=== PATIENT | male | born 1930 | race Caucasian/White ===

== ENCOUNTER 2018-10-06 09:55 | Inpatient (IN) ==
[2018-10-06 10:36] LABS: Basophils # 0.1 K/mm3 (0-0.2); Basophils % 0.9 % (0.1-2.0); Eosinophils # 0.4 K/mm3 (0.0-0.4); Eosinophils % 7.4 % (0.1-12.0); Hematocrit 35.8 % (42.0-52.0); Hemoglobin 10.9 g/dL (14.1-18.0); Lymphocytes # 1.2 K/mm3 (0.7-4.5); Lymphocytes % 20.8 % (10-50); Mean Corpuscular HGB Conc 30.4 g/dL (31.8-35.4); Mean Corpuscular Volume 112.1 fl (80-94); Mean Platelet Volume 8.6 fl (7.4-10.4); Monocytes # 0.4 K/mm3 (0.1-1.0); Monocytes % 6.3 % (1.7-9.3); Neutrophils # 3.6 K/mm3 (1.8-7.8); Neutrophils % 64.5 % (37.0-80.0); Platelet Count 124 K/mm3 (142-424); Red Cell Distribution Width 13.7 % (11.5-17.5); White Blood Count 5.6 K/mm3 (4.8-10.8)
[2018-10-06 10:50] LABS: Anion Gap 10.6 mEq/L (5-15); Blood Urea Nitrogen 26 mg/dL (7-18); Calcium 8.8 mg/dL (8.5-10.1); Carbon Dioxide 30 mmol/L (21.0-32.0); Chloride 106 mmol/L (98-107); Glucose 109 mg/dL (74-106); Potassium 4.6 mmoL/L (3.5-5.1); Sodium 142 mmol/L (136-145)
--- NOTE | 2018-10-06 10:54 | Emergency Department Note ---
ED Disposition Clinical Impression: Right lower lobe pneumonia, Elevated hemidiaphragm, Renal insufficiency Disposition: Still a Patient Condition on Discharge: Fair Referrals: Hayden Carr [Primary Care Provider] - - Critical Care Critical Care Time: No Attestation: On 10/06/18, the high probability of a clinically significant, sudden or life threatening deterioration of the following system(s) required my full and direct attention, intervention and personal management. The time I documented below is in addition to time spent performing reported procedures but includes the following listed in this critical care notation. Medical Decision Making - Joshua Inquiry Pt receiving controlled substance: No Joshua was queried for this patient: No Vital Signs: 10/06/18 10:04 10/06/18 10:21 10/06/18 11:03 Temperature 97.7 F Temperature Source Oral Pulse Rate [Left Radial] 100 H 93 H 93 H Respiratory Rate 26 H Blood Pressure [Right Arm] 133/55 L 145/82 H Blood Pressure Mean [Right Arm] 81 103 Blood Pressure Source [Right Arm] Automatic Cuff Automatic Cuff Blood Pressure Position [Right Arm] Sitting Sitting 02 Sat by Pulse Oximetry 79 L 97 99 Oxygen Delivery Method Room Air Nasal Cannula Nasal Cannula Oxygen Flow Rate (LPM) 2 2 - Lab Data Lab Results 10/06/18 10:25: WBC 5.6, RBC 3.20 L, Hgb 10.9 L, Hct 35.8 L, MCV 112.1 H, MCH 34.0 H, MCHC 30.4 L, RDW 13.7, Plt Count 124 L, MPV 8.6, Neut % (Auto) 64.5, Lymph % (Auto) 20.8, [place] % (Auto) 6.3, Eos % (Auto) 7.4, Baso % (Auto) 0.9, Neut # (Auto) 3.6, Lymph # (Auto) 1.2, [place] # (Auto) 0.4, Eos # (Auto) 0.4, Baso # (Auto) 0.1 10/06/18 10:25: Sodium 142, Potassium 4.6, Chloride 106, Carbon Dioxide 30, Anion Gap 10.6, BUN 26 H, Creatinine 1.62 H, Estimated Creat Clear 34, Estimated GFR 40 L, Est GFR ( Amer) 49 L, Glucose 109 H, Calcium 8.8, Troponin I < 0.02 10/06/18 10:25: B-Natriuretic Peptide 79 10/06/18 10:25: Lactate 0.9 10/06/18 10:43: Specimen Source Left radial, O2 % room air, ABG pH 7.29 L, ABG pCO2 56.1 H, ABG pO2 52.0 L, ABG HCO3 26.2 H, ABG Total CO2 28.0 H, ABG O2 Saturation 83 L*, ABG Base Excess -0.4, Mark Test Acceptable Result diagrams: 10/06/18 10:25 10/06/18 10:25 Orders (Tests/Meds): ED MEDICATIONS Generic Name Dose Route Start Last Admin Trade Name Freq PRN Reason Stop Dose Admin Sodium Chloride 3 ml 10/06/18 10:43 Sodium Chloride 3% 15ml [facility] 11/05/18 10:42 ONCE PRN INDUCE SPUTUM COLLECTION Discontinued Medications Generic Name Dose Route Start Last Admin Trade Name Freq PRN Reason Stop Dose Admin Albuterol/Ipratropium 3 ml 10/06/18 10:45 Duoneb 3ml [facility] 10/06/18 10:46 ONCE ONE Ceftriaxone Sodium 1 gm/ 50 mls @ 100 mls/hr 10/06/18 10:46 10/06/18 11:18 Sodium Chloride IV 10/06/18 11:15 100 mls/hr ONCE ONE Administration Protocol ORDERS Category Date Time Status Blood Culture Stat Micro 10/06/18 10:25 Received Sputum Culture & Gram Stain Stat Micro 10/06/18 10:50 Received ECG Request by /Whitney Stat Y 10/06/18 10:12 Ordered - Radiology Data #1 Image(s): Chest Image Reviewed: Yes I reviewed the patient's radiology image, Yes I discussed the image results w/the radiologist Preliminary Findings: Abnormal Poor inspiratory effort, elevated left hemidiaphragm, early developing infiltrates in the right lower lobe. - ECG Data Tracing #1 Normal sinus rhythm 95/min baseline artifact no acute findings. ECG initial impression date: 10/06/18 ECG initial impression time: 11:15 Medical Decision Narrative: The patient did well on 4 L nC. I discussed his CXR with the Radiologist Dr Case with early developing RLL pneumonia. [address] Grimm for admission. Dr. Nickerson agreed to admit her for community-acquired pneumonia start on ceftriaxone and Zithromax. Resp/SOB HPI - General Chief Complaint: Shortness of Breath/Dyspnea Stated Complaint: Low on O2 Time Seen by Provider: 10/06/18 10:10 Mode of Arrival: Ambulatory Limitations: No Limitations Description of Symptoms (Recalled from ER Triage Doc. by RN): to ed per pvt car pt sent from dr carr' office for eval due to sob and low o2 sats pt admits to ed per wheelchair with sob, cough x 1 week denies any fever, chills, nausea, vomiting or chest pain - History of Present Illness 87 years old white male should have Dr. Carr. He presented to the ED with 6 days history of progressive shortness of breath and productive sputum. He denies having fever chills chest pain palpitations hemoptysis hematemesis coffee-ground emesis melanotic stool or bleeding per rectum. He denies nausea vomiting or diarrhea. He believes he has pneumonia. Upon arrival his oxygen saturation was 79% on RA, he has no home oxygen. MD Complaint: shortness of breath, cough Onset (ago): day(s) (6 days.) Severity: moderate Consistency/Duration: constant Relieving factors: oxygen, rest Exacerbating factors: exertion Known history of: recurrent pneumonia Associated symptoms: cough, sputum production Treatment prior to arrival: none - Related Data Home oxygen amount: other (He has no home oxygen.) Previous Rx's Medication Instructions Recorded sndvhley-qmkotwiuv-vprzzinor 3.5 4 drp OTIC TID #10 ml 09/28/18 mg/mL-10,000 unit/mL-1 % ear solution Allergies Allergy/AdvReac Type Severity Reaction Status Date / Time No Known Allergies Allergy Verified 10/06/18 10:16 [facility] History I have reviewed the patient's past medical history: Yes - Social History Alcohol Intake: never - Psychiatric History Expresses thoughts of harming self/others: None Suicide Plan Description: No Plan ROS Obtained: Yes All systems reviewed & no additional complaints Physical Exam - General General appearance: alert, in no apparent distress, other (He breathes comfortably on 4 L of oxygen. ) - Head Head exam: atraumatic, normocephalic, normal inspection - Eye Eye exam: Present: normal appearance, PERRL, EOMI. Absent: scleral icterus, nystagmus - ENT ENT exam: Present: normal exam, normal oropharynx, mucous membranes moist, TM's normal bilaterally, normal external ear exam - Neck Neck exam: Present: normal inspection, full ROM, trachea midline, other (Positive JVD. ). Absent: tenderness, meningismus, lymphadenopathy - Chest Chest inspection: Present: normal inspection, symmetric chest wall rise. Absent: tenderness - Respiratory Respiratory exam: Present: other (Diminished air entry over the lung bases, no wheezing or rhonchi. ). Absent: respiratory distress, wheezes - Cardiovascular Cardiovascular exam: Present: regular rate, normal rhythm, normal heart sounds. Absent: JVD - Abdominal Exam Abdominal exam: Present: soft, normal bowel sounds. Absent: distention, tenderness, guarding, rebound, rigidity - Extremities Exam Extremities exam: Present: normal inspection, full ROM, normal capillary refill, pedal edema, other (Bilateral chronic venous stasis. She states his legs are better. ). Absent: calf tenderness - Back Exam Back exam: Present: normal inspection. Absent: tenderness, CVA tenderness (R), CVA tenderness (L), paraspinal tenderness, vertebral tenderness - Neurological Exam Neurological exam: Present: alert, oriented X3, CN II-XII intact, motor sensory deficit, reflexes normal - Psychiatric Psychiatric exam: Present: normal affect, normal mood - Skin Skin exam: Present: warm, dry, intact, normal color - Lymphatic Lymphatic Findings: no adenopathy
[2018-10-06 11:05] LABS: ABG Base Excess -0.4 mmol/L (-2.4-2.3); ABG HCO3 26.2 mmhg (22.0-26.0); ABG Oxygen Saturation 83 % (90-100); ABG PH 7.29 mmol/L (7.35-7.45)
[2018-10-06 11:09] LABS: ABG PCO2 56.1 mmhg (35.0-45.0); Allen's Test Acceptable; Oxygen room air %
--- NOTE | 2018-10-06 16:01 | History & Physical Report ---
*Admission Date: 10/06/18 *Chief complaint: Shortness of air *History of present illness: 87-year-old white male, patient of Dr. Carr, who went to his office today with a chief complaint of shortness of air and was found to be relatively hypoxemic by pulse oximetry criteria and was transferred over to the emergency department. In the emergency department patient was found to be dyspneic. Required oxygen, and was much more comfortable after 2 L of nasal cannula oxygen delivery. Chest x-ray revealed a right lower lobe pneumonia-although chest x-ray is somewhat compromised by patient significant postural abnormalities and patient was admitted to hospital because of hypoxia, advanced age and other comorbid factors. [facility] History I have reviewed the patient's past medical history: Yes Other Medical History: Reports: Glaucoma Comment: Record deficit from primary care office: Patient endorses significant arthritis and overall fragility. Reports glaucoma, reports peripheral edema with recent Lasix treatment over the past couple of months, as well as significant arthritis, kyphosis and overall functional decline issues. Otherwise enjoys fairly good health and has no significant heart history to his knowledge. Takes naproxen and Lasix at home. 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), Denies change in voice, Denies dental pain, Denies difficulty swallowing - *Cardiovascular Reports shortness of breath, Reports shortness of breath with activity, Reports leg swelling (In past, better now with Lasix), Denies chest pain, Denies chest pain at rest, Denies irregular heart rhythm, Denies lightheadedness, Denies shortness of breath when lying down, Denies rapid, pounding, or irregular heartbeat, Denies shortness of breath causing sudden awakening - *Respiratory Reports change in phlegm color, Reports chest congestion, Reports cough, Reports shortness of breath, Reports shortness of breath with activity, Denies excessive phlegm production, Denies coughing up blood - *Gastrointestinal Denies abdominal pain, Denies belching, Denies bloating, Denies change in bowel habits, Denies coffee ground vomit, Denies constipation, Denies difficulty swallowing - *Genitourinary Denies difficulty urinating - *Musculoskeletal Reports abnormal walking (History of falls), Reports loss of height (History of kyphosis) - Integumentary/Breasts Denies acne, Denies hair loss, Denies bleeding lesions - *Neurologic Reports frequent falls, Denies confusion, Denies seizure-like activity Meds Home Medications Medication Instructions Recorded Confirmed Type Neomycin/Polymyxin B Sulf/Hc 4 drops EAR-BOTH TID PRN 10/06/18 10/06/18 History [Kovhdmql-Cvzdylzkx-MM Otic Susp 10mL] Allergies Allergy/AdvReac Type Severity Reaction Status Date / Time No Known Allergies Allergy Verified 10/06/18 10:16 Exam Vital signs and Labs for Last 24 Hours: Temp Pulse Resp BP Pulse Ox 98 F 110 H 24 133/64 100 10/06/18 13:35 10/06/18 14:17 10/06/18 14:17 10/06/18 14:17 10/06/18 14:17 Laboratory Results - last 24 hr 10/06/18 10:25: WBC 5.6, RBC 3.20 L, Hgb 10.9 L, Hct 35.8 L, MCV 112.1 H, MCH 34.0 H, MCHC 30.4 L, RDW 13.7, Plt Count 124 L, MPV 8.6, Neut % (Auto) 64.5, Lymph % (Auto) 20.8, [place] % (Auto) 6.3, Eos % (Auto) 7.4, Baso % (Auto) 0.9, Neut # (Auto) 3.6, Lymph # (Auto) 1.2, [place] # (Auto) 0.4, Eos # (Auto) 0.4, Baso # (Auto) 0.1 10/06/18 10:25: Sodium 142, Potassium 4.6, Chloride 106, Carbon Dioxide 30, Anion Gap 10.6, BUN 26 H, Creatinine 1.62 H, Estimated Creat Clear 34, Estimated GFR 40 L, Est GFR ( Amer) 49 L, Glucose 109 H, Calcium 8.8, Troponin I < 0.02 10/06/18 10:25: B-Natriuretic Peptide 79 10/06/18 10:25: Lactate 0.9 10/06/18 10:43: Specimen Source Left radial, O2 % room air, ABG pH 7.29 L, ABG pCO2 56.1 H, ABG pO2 52.0 L, ABG HCO3 26.2 H, ABG Total CO2 28.0 H, ABG O2 Saturation 83 L*, ABG Base Excess -0.4, Mark Test Acceptable I & O for Last 24 hours: Intake & Output 10/04/18 10/05/18 10/06/18 10/07/18 11:59 11:59 11:59 11:59 Weight 170 lb 167 lb 5 oz Microbiology Reports for the Last 24 Hours: Microbiology 10/06/18 10:50 Sputum - Expectorated Sputum Gram Stain - Final 10/06/18 10:50 Sputum - Expectorated Sputum Sputum Culture - Final Narrative: Patient appears his stated age. He is hard of hearing but otherwise communicates wonderfully well. Alert, oriented x3. Significant kyphosis with lateral deformity of the spine noted. Oropharynx clear, good dentition. No oropharyngeal lesions. Lungs have rhonchi in both bases. Heart rate regular. No murmurs. Abdomen soft and nontender. Extremities with brawny skin changes and some scaling on the shins. Consistent with his history of previously noted edema that has resolved with Lasix. Significant osteoarthritis of hands and knees noted. No evidence of inflammatory arthritis. Moves his arms and legs well but is weak. No cranial nerve asymmetry. Assessment and Plan (1) Frequent falls Current visit: Yes Status: Acute Category: Medical Code(s): R29.6 - Repeated falls Patient will need PT evaluation before discharge. Has history of requiring home health in the past after a fall with a hip sprain. (2) Kyphosis (acquired) (postural) Current visit: Yes Status: Acute Category: Medical Code(s): M40.00 - Postural kyphosis, site unspecified Significant postural instability. Compromises chest x-ray findings. We will try to repeat chest x-ray tomorrow. (3) Right lower lobe pneumonia Current visit: Yes Status: Acute Category: Medical Code(s): J18.1 - Lobar pneumonia, unspecified organism Given hypoxia inpatient therapy. Complicating factors include his advanced age and postural issues. Agree with ceftriaxone and azithromycin choices. (4) Elevated hemidiaphragm Current visit: Yes Status: Acute Category: Medical Code(s): J98.6 - Disord ers of diaphragm Complicates pneumonia. Uncertain history. (5) Renal insufficiency Current visit: Yes Status: Acute Category: Medical Code(s): N28.9 - Disorder of kidney and ureter, unspecified Appears to be acute on chronic with baseline creatinine 1.4 and creatinine today 1.6. Follow tomorrow. Hold Lasix and naproxen (6) Bilateral lower leg cellulitis Current visit: Yes Status: Acute Category: Medical Code(s): L03.116 - Cellulitis of left lower limb; L03.115 - Cellulitis of right lower limb Does not appear to be infectious. Appears to be brawny skin changes with scaling from his resolved edema. Nursing care with bandaging as noted.
[2018-10-07 06:57] LABS: Basophils # 0.1 K/mm3 (0-0.2); Basophils % 0.7 % (0.1-2.0); Eosinophils # 0.2 K/mm3 (0.0-0.4); Eosinophils % 3.2 % (0.1-12.0); Hemoglobin 10.3 g/dL (14.1-18.0); Lymphocytes # 1.4 K/mm3 (0.7-4.5); Lymphocytes % 20.4 % (10-50); Mean Corpuscular HGB Conc 30.2 g/dL (31.8-35.4); Mean Corpuscular Hemoglobin 34.2 pg (27.0-31.2); Mean Corpuscular Volume 113.2 fl (80-94); Mean Platelet Volume 9.8 fl (7.4-10.4); Monocytes # 0.5 K/mm3 (0.1-1.0); Monocytes % 6.9 % (1.7-9.3); Neutrophils # 4.6 K/mm3 (1.8-7.8); Neutrophils % 68.7 % (37.0-80.0); Platelet Count 104 K/mm3 (142-424); Red Blood Count 3.01 M/mm3 (4.60-6.20); Red Cell Distribution Width 13.6 % (11.5-17.5); White Blood Count 6.7 K/mm3 (4.8-10.8)
[2018-10-07 07:04] LABS: Anion Gap 8.5 mEq/L (5-15); Calcium 8.4 mg/dL (8.5-10.1); Potassium 4.5 mmoL/L (3.5-5.1)
--- NOTE | 2018-10-07 08:41 | Progress Note ---
Internal Medicine - PN: Subj *Date: 10/07/18 *Time: 08:39 Interval history: Patient had a fairly good night sleep. This morning however, has had increased oxygen requirement up to 4 L nasal cannula and has a mild cough. However, he did not feel short of air lying flat, only when he gets up and tries to move around. Exam Vital signs and Labs for Last 24 Hours: Temp Pulse Resp BP Pulse Ox 98.1 F 102 H 23 120/66 91 L 10/07/18 04:00 10/07/18 05:55 10/07/18 04:00 10/07/18 04:00 10/07/18 05:55 Laboratory Results - last 24 hr 10/06/18 10:25: WBC 5.6, RBC 3.20 L, Hgb 10.9 L, Hct 35.8 L, MCV 112.1 H, MCH 34.0 H, MCHC 30.4 L, RDW 13.7, Plt Count 124 L, MPV 8.6, Neut % (Auto) 64.5, Lymph % (Auto) 20.8, [place] % (Auto) 6.3, Eos % (Auto) 7.4, Baso % (Auto) 0.9, Neut # (Auto) 3.6, Lymph # (Auto) 1.2, [place] # (Auto) 0.4, Eos # (Auto) 0.4, Baso # (Auto) 0.1 10/06/18 10:25: Sodium 142, Potassium 4.6, Chloride 106, Carbon Dioxide 30, Anion Gap 10.6, BUN 26 H, Creatinine 1.62 H, Estimated Creat Clear 34, Estimated GFR 40 L, Est GFR ( Amer) 49 L, Glucose 109 H, Calcium 8.8, Troponin I < 0.02 10/06/18 10:25: B-Natriuretic Peptide 79 10/06/18 10:25: Lactate 0.9 10/06/18 10:43: Specimen Source Left radial, O2 % room air, ABG pH 7.29 L, ABG pCO2 56.1 H, ABG pO2 52.0 L, ABG HCO3 26.2 H, ABG Total CO2 28.0 H, ABG O2 Saturation 83 L*, ABG Base Excess -0.4, Mark Test Acceptable 10/06/18 16:25: Troponin I < 0.02 10/06/18 17:48: Troponin I < 0.02 10/07/18 06:37: WBC 6.7, RBC 3.01 L, Hgb 10.3 L, Hct 34.0 L, MCV 113.2 H, MCH 34.2 H, MCHC 30.2 L, RDW 13.6, Plt Count 104 L, MPV 9.8, Neut % (Auto) 68.7, Lymph % (Auto) 20.4, [place] % (Auto) 6.9, Eos % (Auto) 3.2, Baso % (Auto) 0.7, Neut # (Auto) 4.6, Lymph # (Auto) 1.4, [place] # (Auto) 0.5, Eos # (Auto) 0.2, Baso # (Auto) 0.1 10/07/18 06:37: Sodium 143, Potassium 4.5, Chloride 109 H, Carbon Dioxide 30, Anion Gap 8.5, BUN 20 H, Creatinine 1.44 H, Estimated Creat Clear 38, Estimated GFR 46 L, Est GFR ( Amer) 56 L, Glucose 115 H, Calcium 8.4 L I & O for Last 24 hours: Intake & Output 10/04/18 10/05/18 10/06/18 10/07/18 11:59 11:59 11:59 11:59 Intake Total 1170 / 1170 Output Total 125 / 125 Balance 1045 / 1045 Weight 170 lb 167 lb 5 oz Microbiology Reports for the Last 24 Hours: Microbiology 10/06/18 10:50 Sputum - Expectorated Sputum Gram Stain - Final 10/06/18 10:50 Sputum - Expectorated Sputum Sputum Culture - Final Narrative: Patient is alert, pleasant. Oriented x3. Exam of lungs is about the same as yesterday with minimal rhonchi in both bases with occasional expiratory crackles. Heart rate regular. Leg edema is minimal, see yesterday's exam notes. No JVD noted. Assessment and Plan (1) Frequent falls Current visit: Yes Status: Acute Category: Medical Code(s): R29.6 - Repeated falls (2) Kyphosis (acquired) (postural) Current visit: Yes Status: Acute Category: Medical Code(s): M40.00 - Postural kyphosis, site unspecified (3) Right lower lobe pneumonia Current visit: Yes Status: Acute Category: Medical Code(s): J18.1 - Lobar pneumonia, unspecified organism (4) Elevated hemidiaphragm Current visit: Yes Status: Acute Category: Medical Code(s): J98.6 - Disorders of diaphragm (5) Renal insufficiency Current visit: Yes Status: Acute Category: Medical Code(s): N28.9 - Disorder of kidney and ureter, unspecified (6) Bilateral lower leg cellulitis Current visit: Yes Status: Acute Category: Medical Code(s): L03.116 - Cellulitis of left lower limb; L03.115 - Cellulitis of right lower limb (7) Hypoxia Current visit: Yes Status: Acute Category: Medical Code(s): R09.02 - Hypox emia Lasix therapy this morning intravenously because of possible fluid retention and hypoxia. Check chest x-ray this morning. Echo tomorrow morning. (8) Bilateral leg edema Current visit: Yes Status: Acute Category: Medical Code(s): R60.0 - Localized edema Family raise the concern with nursing staff about a possible blood clot given his sedentary activities at home. He has had edema at home, so I will check a d-dimer and do Doppler testing. - Assessment and plan all Dx Assessment and Plan for all problems:: See notes from yesterday regarding above problems.
--- NOTE | 2018-10-07 09:19 | Pharmacy Consult Notes ---
[facility] Pharmacy VTE Monitoring - Patient Demographics Admission date: 10/07/18 Report Date: 10/07/18 Time: 09:19 Allergies/Adverse Reactions: Patient Allergies No Known Allergies Allergy (Verified 10/06/18 10:16) Height: 1.6 m Weight: 75.892 kg Patient Problems: Current Active Problems Right lower lobe pneumonia (Acute) Elevated hemidiaphragm (Acute) Renal insufficiency (Acute) Frequent falls (Acute) Kyphosis (acquired) (postural) (Acute) Bilateral lower leg cellulitis (Acute) Hypoxia (Acute) Bilateral leg edema (Acute) - VTE Risk Labs: VTE Related Lab Results Hgb 10.3 g/dL (14.1-18.0) L 10/07/18 06:37 Hct 34.0 % (42.0-52.0) L 10/07/18 06:37 Plt Count 104 K/mm3 (142-424) L 10/07/18 06:37 BUN 20 mg/dL (7-18) H 10/07/18 06:37 Creatinine 1.44 mg/dL (0.70-1.30) H 10/07/18 06:37 Estimated Creat Clear 38 mL/min (50-200) 10/07/18 06:37 Was VTE Risk Assessment Performed: Yes VTE Score: 1 - Prophylaxis Location of Applied Device: Bilateral Lower Extremeties Pharmacologic Type: Enoxaparin (LOVENOX ORDERED)
[2018-10-07 17:55] LABS: Anion Gap 10.4 mEq/L (5-15); Calcium 8.7 mg/dL (8.5-10.1); Potassium 4.4 mmoL/L (3.5-5.1); Thyroid Stimulating Hormone 0.94 uIU/ml (0.358-3.740)
[2018-10-07 22:44] LABS: ABG Base Excess 5.6 mmol/L (-2.4-2.3); ABG HCO3 31.7 mmhg (22.0-26.0); ABG Oxygen Saturation 97 % (90-100); ABG PH 7.32 mmol/L (7.35-7.45); ABG TCO2 33.6 mmhg (23-27)
[2018-10-07 22:45] LABS: ABG PCO2 62.7 mmhg (35.0-45.0); Allen's Test Y; Oxygen 4 %
[2018-10-08 06:34] LABS: Basophils % 0.4 % (0.1-2.0); Eosinophils # 0.1 K/mm3 (0.0-0.4); Eosinophils % 2.3 % (0.1-12.0); Hematocrit 30.4 % (42.0-52.0); Lymphocytes # 1.7 K/mm3 (0.7-4.5); Lymphocytes % 27.4 % (10-50); Mean Corpuscular HGB Conc 32.8 g/dL (31.8-35.4); Mean Corpuscular Hemoglobin 36.5 pg (27.0-31.2); Mean Corpuscular Volume 111.2 fl (80-94); Monocytes # 0.5 K/mm3 (0.1-1.0); Monocytes % 7.4 % (1.7-9.3); Neutrophils # 3.8 K/mm3 (1.8-7.8); Neutrophils % 62.6 % (37.0-80.0); Platelet Count 94 K/mm3 (142-424); Red Blood Count 2.74 M/mm3 (4.60-6.20); Red Cell Distribution Width 13.6 % (11.5-17.5); White Blood Count 6.1 K/mm3 (4.8-10.8)
[2018-10-08 06:49] LABS: Anion Gap 12.1 mEq/L (5-15); Calcium 8.6 mg/dL (8.5-10.1); Potassium 4.1 mmoL/L (3.5-5.1)
--- NOTE | 2018-10-08 07:27 | Non-Invasive Vascular Report ---
"Venous Exam Indications: 782.3 Edema. IMPRESSIONS 1. There is no evidence of significant Reflux. 2. No evidence of deep or superficial vein thrombosis involving the right lower extremity 3. No evidence of deep or superficial vein thrombosis involving the left lower extremity Complete lower extremity venous duplex evaluation. Doppler flow study including spectral analysis, color and stovall scale imaging. Location: Bedside. Patient status: Inpatient. Tables: Venous flow and imaging: + + + + |Location |Overall |Flow properties | + + + + |Right common femoral |Patent |Normal phasicity; | | | |spontaneous; normal | | | |augmentation; compressible | + + + + |Right saphenofemoral |Patent |Compressible | |junction | | | + + + + |Right profunda femoral |Patent |Compressible | + + + + |Right femoral |Patent |Normal phasicity; | | | |spontaneous; normal | | | |augmentation; compressible;| | | |no reflux | + + + + |Right greater saphenous |Patent |Normal phasicity; | | | |spontaneous; normal | | | |augmentation; compressible | + + + + |Right popliteal |Patent |Normal phasicity; | | | |spontaneous; normal | | | |augmentation; compressible | + + + + |Right posterior tibial |Patent |Compressible | + + + + |Right peroneal |Difficult | | | |study | | + + + + |Right gastrocnemius |Patent |Compressible | + + + + |Right soleal |Patent |Compressible | + + + + |Left common femoral |Patent |Normal phasicity; | | | |spontaneous; normal | | | |augmentation; compressible | + + + + |Left saphenofemoral junction|Patent |Compressible | + + + + |Left profunda femoral |Patent |Compressible | + + + + |Left femoral |Patent |Normal phasicity; | | | |spontaneous; normal | | | |augmentation; compressible | + + + + |Left greater saphenous |Patent |Normal phasicity; | | | |spontaneous; normal | | | |augmentation; compressible | + + + + |Left popliteal |Patent |Normal phasicity; | | | |spontaneous; normal | | | |augmentation; compressible | + + + + |Left posterior tibial |Patent |Compressible | + + + + |Left peroneal |Difficult | | | |study | | + + + + |Left gastrocnemius |Patent |Compressible | + + + + |Left soleal |Patent |Compressible | + + + + (Report amended ) Electronically signed by: Kit Morales [id number]"
[2018-10-08 08:07] LABS: ABG Base Excess 3.6 mmol/L (-2.4-2.3); ABG HCO3 28.7 mmhg (22.0-26.0); ABG Oxygen Saturation 98 % (90-100); ABG PCO2 49.8 mmhg (35.0-45.0); ABG PH 7.38 mmol/L (7.35-7.45); ABG PO2 116.7 mmhg (80-100); ABG TCO2 30.3 mmhg (23-27)
[2018-10-08 08:10] LABS: Allen's Test Acceptable; Oxygen 32 %
--- NOTE | 2018-10-08 09:05 | Progress Note ---
Internal Medicine - PN: Subj *Date: 10/08/18 *Time: 09:03 Interval history: Patient became significantly dyspneic and hypoxic yesterday evening, ABG showed mild respiratory acidosis and BiPAP was placed overnight which improved his situation nicely with resolution of the respiratory acidosis on ABG this morning. Patient is awake and alert, states he feels more comfortable. Reddy catheter was placed yesterday because of diuresis, patient's significant fall risk with transition to bathroom to urinate and for accurate urine output monitoring. Echocardiogram done this morning by transthoracic technique was essentially unreadable because of his severe kyphosis issues and poor pulmonary window. Exam Vital signs and Labs for Last 24 Hours: Temp Pulse Resp BP Pulse Ox 99.0 F 98 H 23 110/61 96 10/08/18 04:00 10/08/18 04:00 10/08/18 04:00 10/08/18 04:00 10/08/18 06:27 Laboratory Results - last 24 hr 10/07/18 17:15: Sodium 143, Potassium 4.4, Chloride 105, Carbon Dioxide 32, Anion Gap 10.4, BUN 20 H, Creatinine 1.53 H, Estimated Creat Clear 36, Estimated GFR 43 L, Est GFR ( Amer) 52 L, Glucose 111 H, Calcium 8.7, Magnesium 1.8, TSH 0.94 10/07/18 22:27: POC Glucose 109 10/07/18 22:43: Specimen Source L/r, O2 % 4, ABG pH 7.32 L, ABG pCO2 62.7 H, ABG pO2 92.0, ABG HCO3 31.7 H, ABG Total CO2 33.6 H, ABG O2 Saturation 97, ABG Base Excess 5.6 H, Mark Test Y 10/08/18 06:10: WBC 6.1, RBC 2.74 L, Hgb 10.0 L, Hct 30.4 L, MCV 111.2 H, MCH 36.5 H, MCHC 32.8, RDW 13.6, Plt Count 94 L, MPV 9.0, Neut % (Auto) 62.6, Lymph % (Auto) 27.4, [place] % (Auto) 7.4, Eos % (Auto) 2.3, Baso % (Auto) 0.4, Neut # (Auto) 3.8, Lymph # (Auto) 1.7, [place] # (Auto) 0.5, Eos # (Auto) 0.1, Baso # (Auto) 0.0 10/08/18 06:10: Sodium 144, Potassium 4.1, Chloride 104, Carbon Dioxide 32, Anion Gap 12.1, BUN 21 H, Creatinine 1.69 H, Estimated Creat Clear 32, Estimated GFR 38 L, Est GFR ( Amer) 47 L, Glucose 103, Calcium 8.6 10/08/18 07:46: Specimen Source Rt radial, O2 % 32, ABG pH 7.38, ABG pCO2 49.8 H , ABG pO2 116.7 H, ABG HCO3 28.7 H, ABG Total CO2 30.3 H, ABG O2 Saturation 98, ABG Base Excess 3.6 H, Mark Test Acceptable I & O for Last 24 hours: Intake & Output 10/05/18 10/06/18 10/07/18 10/08/18 11:59 11:59 11:59 11:59 Intake Total 1650 / 1650 2090 / 2090 Output Total 625 / 625 2700 / 2700 Balance 1025 / 1025 -610 / -610 Weight 170 lb 167 lb 5 oz Narrative: Patient is awake, alert, sitting upright on the bedside commode. Lungs continue to have rhonchi and crackles in both bases. Kyphosis noted. Heart rate regular. Exam difficult because of lung sounds. Trace ankle edema, skin peeling is improving with ointment therapy. Able to move all arms and legs. Abdomen soft. Assessment and Plan (1) Frequent falls Current visit: Yes Status: Acute Category: Medical Code(s): R29.6 - Repeated falls (2) Kyphosis (acquired) (postural) Current visit: Yes Status: Acute Category: Medical Code(s): M40.00 - Postural kyphosis, site unspecified (3) Right lower lobe pneumonia Current visit: Yes Status: Acute Category: Medical Code(s): J18.1 - Lobar pneumonia, unspecified organism (4) Elevated hemidiaphragm Current visit: Yes Status: Acute Category: Medical Code(s): J98.6 - Disorders of diaphragm (5) Renal insufficiency Current visit: Yes Status: Acute Category: Medical Code(s): N28.9 - Disorder of kidney and ureter, unspecified (6) Bilateral lower leg cellulitis Current visit: Yes Status: Acute Category: Medical Code(s): L03.116 - Cellulitis of left lower limb; L03.115 - Cellulitis of right lower limb (7) Hypoxia Current visit: Yes Status: Acute Category: Medical Code(s): R09.02 - Hypoxemia (8) Bilateral leg edema Current visit: Yes Status: Acute Category: Medical Code(s): R60.0 - Localized edema - Assessment and plan all Dx Assessment and Plan for all problems:: Therapy as noted above for problem list and previously notes. Cardiology consult to evaluate for transesophageal echo given significant atelectasis and hypoxia. Venous Dopplers of legs look negative. CT scan of chest with significant atelectasis but no PE. PT/OT evaluation given significant weakness for possible skilled rehab issues. Patient may be a candidate for home BiPAP and certainly needs a home hospital bed given positional problems.
--- NOTE | 2018-10-08 10:30 | Consult Report ---
Addendum entered and electronically signed by SURESH Gomez 10/08/18 14:13: Echo with Definity contrast not an option due to poor acoustic windows. Patient unable to hold arms overhead long enough for MUGA scan. Will attempt to obtain an accurate ejection fraction by obtaining the resting portion of a nuclear stress test. Original Note: History of Present Illness Consult date: 10/08/18 Requesting physician: Quinten Grimm Consult reason: shortness of breath Chief complaint: SOA Additional Medical History:: 1. Remote tobacco use, started age 11, ended in his mid 30s 2. Kyphosis 3. Arthritis 4. Macrocytic anemia 5. CKD, stage 3 with creatinine 1.4-1.6, GFR 38-46 History of present illness: 87-year-old white male, patient of Dr. Carr, who went to his office today with a chief complaint of shortness of air and was found to be relatively hypoxemic by pulse oximetry criteria and was transferred over to the emergency department. In the emergency department patient was found to be dyspneic. Required oxygen, and was much more comfortable after 2 L of nasal cannula oxygen delivery. Chest x-ray revealed a right lower lobe pneumonia-although chest x-ray is somew hat compromised by patient significant postural abnormalities and patient was admitted to hospital because of hypoxia, advanced age and other comorbid factors. The above per Dr. Grimm With recurrent episodes of hypoxia and shortness of breath with mitral annular calcification noted on CT of the chest, cardiology has been consulted to evaluate for possible ROBIN. Transthoracic echocardiogram was essentially unable due to the patient's kyphosis and elevated left hemidiaphragm with pulmonary atelectasis. Patient's and daughter are present and provide most of the history due to the patient being on BiPAP. He denies any chest pain. They deny any history of heart problems. Patient smoked remotely for about 22 years ending in his mid 30s. No history of diabetes. [facility] History Other Medical History: Reports: Glaucoma - *Social History Educational Level: Attended College Alcohol Intake: never Occupational Status: retired Housing: house Household Members: spouse - Psychiatric History Expresses thoughts of harming self/others: None Suicide Plan Description: No Plan *Family Hx:: No significant family history, Non-contributory Meds Home Medications Medication Instructions Recorded Confirmed Type Furosemide [Furosemide 20mg Tab] 20 mg PO DAILY 10/06/18 10/06/18 History Naproxen 500 mg PO BID 10/06/18 10/06/18 History Neomycin/Polymyxin B Sulf/Hc 4 drops EAR-BOTH TIDP PRN 10/06/18 10/07/18 History [Qngdccqh-Mgmxllvep-GR Otic Susp 10mL] Potassium Chloride [Pot Chlor 10 10 meq PO DAILY 10/06/18 10/06/18 History mEq Tab] Timolol Maleate/Latanoprost/Pf 5 ml OP BID 10/06/18 10/06/18 History [Timolol 0.5%-Latanopros 0.005%] Allergies Allergy/AdvReac Type Severity Reaction Status Date / Time No Known Allergies Allergy Verified 10/06/18 10:16 Review of Systems - *Cardiovascular Reports shortness of breath - *Respiratory Reports cough, Reports shortness of breath - *Gastrointestinal Denies abdominal pain - *Genitourinary Denies blood in urine - *Musculoskeletal Reports back pain - *Neurologic Reports abnormal walking (History of falls), 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), Reports frequent falls, Denies confusion, Denies seizure-like activity Exam Vital signs and Labs for Last 24 Hours: Temp Pulse Resp BP Pulse Ox 98.9 F 111 H 22 130/69 96 10/08/18 08:00 10/08/18 08:00 10/08/18 08:00 10/08/18 08:00 10/08/18 06:27 Laboratory Results - last 24 hr 10/07/18 17:15: Sodium 143, Potassium 4.4, Chloride 105, Carbon Dioxide 32, Anion Gap 10.4, BUN 20 H, Creatinine 1.53 H, Estimated Creat Clear 36, Estimated GFR 43 L, Est GFR ( Amer) 52 L, Glucose 111 H, Calcium 8.7, Magnesium 1.8, TSH 0.94 10/07/18 22:27: POC Glucose 109 10/07/18 22:43: Specimen Source L/r, O2 % 4, ABG pH 7.32 L, ABG pCO2 62.7 H, ABG pO2 92.0, ABG HCO3 31.7 H, ABG Total CO2 33.6 H, ABG O2 Saturation 97, ABG Base Excess 5.6 H, Mark Test Y 10/08/18 06:10: WBC 6.1, RBC 2.74 L, Hgb 10.0 L, Hct 30.4 L, MCV 111.2 H, MCH 36.5 H, MCHC 32.8, RDW 13.6, Plt Count 94 L, MPV 9.0, Neut % (Auto) 62.6, Lymph % (Auto) 27.4, [place] % (Auto) 7.4, Eos % (Auto) 2.3, Baso % (Auto) 0.4, Neut # (Auto) 3.8, Lymph # (Auto) 1.7, [place] # (Auto) 0.5, Eos # (Auto) 0.1, Baso # (Auto) 0.0 10/08/18 06:10: Sodium 144, Potassium 4.1, Chloride 104, Carbon Dioxide 32, Anion Gap 12.1, BUN 21 H, Creatinine 1.69 H, Estimated Creat Clear 32, Estimated GFR 38 L, Est GFR ( Amer) 47 L, Glucose 103, Calcium 8.6 10/08/18 07:46: Specimen Source Rt radial, O2 % 32, ABG pH 7.38, ABG pCO2 49.8 H , ABG pO2 116.7 H, ABG HCO3 28.7 H, ABG Total CO2 30.3 H, ABG O2 Saturation 98, ABG Base Excess 3.6 H, Makr Test Acceptable I & O for Last 24 hours: Intake & Output 10/05/18 10/06/18 10/07/18 10/08/18 11:59 11:59 11:59 11:59 Intake Total 1650 / 1650 2090 / 2090 Output Total 625 / 625 2700 / 2700 Balance 1025 / 1025 -610 / -610 Weight 170 lb 167 lb 5 oz - *Routine HEENT Exam Head: Present: normocephalic Eye: Present: EOMI, PERRL ENT: Present: mucous membranes moist - *Routine Neck Exam Present: supple, JVD. Absent: carotid bruit - *Routine Respiratory Exam Present: decreased breath sounds, CTA bilaterally, diminished air movement. Absent: accessory muscle use, rales, rhonchi, wheezes - *Routine Cardiovascular Exam Present: RRR, murmur. Absent: gallop, rubs - *Routine Abdominal Exam Present: soft. Absent: tenderness, distended, guarding - *Routine Extremities Exam Present: edema. Absent: calf tenderness Comments: Trace edema noted of the both lower extremities with an area wrapped in gauze around the right mid calf. Palpable pulses noted in dorsalis pedis areas of both feet. - *Routine Neurological Exam Present: alert, oriented X3, moving all extremities Assessment and Plan (1) Frequent falls Current visit: Yes Status: Acute Category: Medical Code(s): R29.6 - Repeated falls (2) Kyphosis (acquired) (postural) Current visit: Yes Status: Acute Category: Medical Code(s): M40.00 - Postural kyphosis, site unspecified (3) Right lower lobe pneumonia Current visit: Yes Status: Acute Category: Medical Code(s): J18.1 - Lobar pneumonia, unspecified organism (4) Elevated hemidiaphragm Current visit: Yes Status: Acute Category: Medical Code(s): J98.6 - Disorders of diaphragm (5) Renal insufficiency Current visit: Yes Status: Acute Category: Medical Code(s): N28.9 - Disorder of kidney and ureter, unspecified (6) Bilateral lower leg cellulitis Current visit: Yes Status: Acute Category: Medical Code(s): L03.116 - Cellulitis of left lower limb; L03.115 - Cellulitis of right lower limb (7) Hypoxia Current visit: Yes Status: Acute Category: Medical Code(s): R09.02 - Hypoxemia (8) Bilateral leg edema Current visit: Yes Status: Acute Category: Medical Code(s): R60.0 - Localized edema - Assessment and plan all Dx Assessment and Plan for all problems:: CT of the chest reveals no evidence of aortic dissection or aneurysm. No evidence of pulmonary embolus. Note was made of calcification of the mitral valve. Troponins have returned normal x3. EKG shows sinus rhythm with no acute changes. Patient would be a candidate for a ROBIN, if needed, however, will consider repeating echo with definity contrast. If still not able to see adequately, then proceed with ROBIN. Dr. Golden will not be available until , October 11. If the patient remains in the hospital it could be performed at that time if he is discharged prior to that it could be performed as an outpatient. BNP is 79 and patient is lieing nearly flat in bed at time of exam. Discussed with Dr. DIAZ
[2018-10-09 06:15] LABS: Basophils % 0.7 % (0.1-2.0); Eosinophils # 0.3 K/mm3 (0.0-0.4); Eosinophils % 5.8 % (0.1-12.0); Hemoglobin 9.5 g/dL (14.1-18.0); Lymphocytes # 1.3 K/mm3 (0.7-4.5); Lymphocytes % 22.9 % (10-50); Mean Corpuscular HGB Conc 30.7 g/dL (31.8-35.4); Mean Corpuscular Hemoglobin 33.8 pg (27.0-31.2); Mean Corpuscular Volume 109.9 fl (80-94); Mean Platelet Volume 8.5 fl (7.4-10.4); Monocytes # 0.4 K/mm3 (0.1-1.0); Monocytes % 6.6 % (1.7-9.3); Neutrophils # 3.6 K/mm3 (1.8-7.8); Platelet Count 119 K/mm3 (142-424); Red Blood Count 2.82 M/mm3 (4.60-6.20); Red Cell Distribution Width 13.5 % (11.5-17.5); White Blood Count 5.6 K/mm3 (4.8-10.8)
[2018-10-09 06:36] LABS: Anion Gap 11.8 mEq/L (5-15); Calcium 8.4 mg/dL (8.5-10.1); Potassium 3.8 mmoL/L (3.5-5.1)
--- NOTE | 2018-10-09 07:51 | Progress Note ---
Subjective Date: 10/09/18 Time: 07:49 Principal diagnosis: SOA Interval history: 87-year-old white male in bed in no acute distress. Patient is now on high flow oxygen by nasal cannula. He appears more alert and interactive today. States he is feeling better and breathing better today. Exam Vital signs and Labs for Last 24 Hours: Temp Pulse Resp BP Pulse Ox 98.0 F 102 H 22 130/61 95 10/09/18 04:00 10/09/18 04:00 10/09/18 04:00 10/09/18 04:00 10/09/18 04:00 Laboratory Results - last 24 hr 10/08/18 06:10: WBC 6.1, RBC 2.74 L, Hgb 10.0 L, Hct 30.4 L, MCV 111.2 H, MCH 36.5 H, MCHC 32.8, RDW 13.6, Plt Count 94 L, MPV 9.0, Neut % (Auto) 62.6, Lymph % (Auto) 27.4, [place] % (Auto) 7.4, Eos % (Auto) 2.3, Baso % (Auto) 0.4, Neut # (Auto) 3.8, Lymph # (Auto) 1.7, [place] # (Auto) 0.5, Eos # (Auto) 0.1, Baso # (Auto) 0.0 10/08/18 07:46: Specimen Source Rt radial, O2 % 32, ABG pH 7.38, ABG pCO2 49.8 H , ABG pO2 116.7 H, ABG HCO3 28.7 H, ABG Total CO2 30.3 H, ABG O2 Saturation 98, ABG Base Excess 3.6 H, Mark Test Acceptable 10/09/18 05:26: WBC 5.6, RBC 2.82 L, Hgb 9.5 L, Hct 31.0 L, MCV 109.9 H, MCH 33.8 H, MCHC 30.7 L, RDW 13.5, Plt Count 119 L D, MPV 8.5, Neut % (Auto) 64.0, Lymph % (Auto) 22.9, [place] % (Auto) 6.6, Eos % (Auto) 5.8, Baso % (Auto) 0.7, Neut # (Auto) 3.6, Lymph # (Auto) 1.3, [place] # (Auto) 0.4, Eos # (Auto) 0.3, Baso # (Auto) 0.0 10/09/18 05:26: Sodium 147 H, Potassium 3.8, Chloride 108 H, Carbon Dioxide 31, Anion Gap 11.8, BUN 18, Creatinine 1.20 D, Estimated Creat Clear 46, Estimated GFR 57 L, Est GFR ( Amer) 69 D, Glucose 106, Calcium 8.4 L I & O for Last 24 hours: Intake & Output 10/06/18 10/07/18 10/08/18 10/09/18 11:59 11:59 11:59 11:59 Intake Total 1650 / 1650 2090 / 2090 703 / 703 Output Total 625 / 625 2700 / 2700 500 / 500 Balance 1025 / 1025 -610 / -610 203 / 203 Weight 170 lb 167 lb 5 oz Microbiology Reports for the Last 24 Hours: Microbiology 10/06/18 10:25 Blood Blood Culture - Preliminary NO GROWTH AFTER 48 HOURS 10/06/18 10:25 Blood Blood Culture - Preliminary NO GROWTH AFTER 48 HOURS - *Routine Respiratory Exam Present: CTA bilaterally. Absent: accessory muscle use, rales, rhonchi, wheezes - *Routine Cardiovascular Exam Present: RRR. Absent: murmur, gallop, rubs Progress Note: A&P (1) Frequent falls Status: Acute Current Visit: Yes (2) Kyphosis (acquired) (postural) Status: Acute Current Visit: Yes (3) Right lower lobe pneumonia Status: Acute Current Visit: Yes (4) Elevated hemidiaphragm Status: Acute Current Visit: Yes (5) Renal insufficiency Status: Acute Current Visit: Yes (6) Bilateral lower leg cellulitis Status: Acute Current Visit: Yes (7) Hypoxia Status: Acute Current Visit: Yes (8) Bilateral leg edema Status: Acute Current Visit: Yes Assessment and Plan for All Diagnoses:: Patient to have resting myoview today to assess LVEF.
--- NOTE | 2018-10-09 07:56 | Progress Note ---
Internal Medicine - PN: Subj *Date: 10/09/18 *Time: 07:56 Exam Vital signs and Labs for Last 24 Hours: Temp Pulse Resp BP Pulse Ox 98.0 F 102 H 22 130/61 95 10/09/18 04:00 10/09/18 04:00 10/09/18 04:00 10/09/18 04:00 10/09/18 04:00 Laboratory Results - last 24 hr 10/08/18 07:46: Specimen Source Rt radial, O2 % 32, ABG pH 7.38, ABG pCO2 49.8 H , ABG pO2 116.7 H, ABG HCO3 28.7 H, ABG Total CO2 30.3 H, ABG O2 Saturation 98, ABG Base Excess 3.6 H, Mark Test Acceptable 10/09/18 05:26: WBC 5.6, RBC 2.82 L, Hgb 9.5 L, Hct 31.0 L, MCV 109.9 H, MCH 33.8 H, MCHC 30.7 L, RDW 13.5, Plt Count 119 L D, MPV 8.5, Neut % (Auto) 64.0, Lymph % (Auto) 22.9, [place] % (Auto) 6.6, Eos % (Auto) 5.8, Baso % (Auto) 0.7, [place] # (Auto) 3.6, Lymph # (Auto) 1.3, [place] # (Auto) 0.4, Eos # (Auto) 0.3, Baso # (Auto) 0.0 10/09/18 05:26: Sodium 147 H, Potassium 3.8, Chloride 108 H, Carbon Dioxide 31, Anion Gap 11.8, BUN 18, Creatinine 1.20 D, Estimated Creat Clear 46, Estimated GFR 57 L, Est GFR ( Amer) 69 D, Glucose 106, Calcium 8.4 L I & O for Last 24 hours: Intake & Output 10/06/18 10/07/18 10/08/18 10/09/18 23:59 23:59 23:59 23:59 Intake Total 600 / 600 2523 / 2523 1320 / 1320 Output Total 125 / 125 1400 / 1400 1800 / 1800 500 / 500 Balance 475 / 475 1123 / 1123 -480 / -480 -500 / -500 Weight 75.892 kg 75.892 kg Microbiology Reports for the Last 24 Hours: Microbiology 10/06/18 10:25 Blood Blood Culture - Preliminary NO GROWTH AFTER 48 HOURS 10/06/18 10:25 Blood Blood Culture - Preliminary NO GROWTH AFTER 48 HOURS Assessment and Plan (1) Frequent falls Current visit: Yes Status: Acute Category: Medical Code(s): R29.6 - Repe ated falls (2) Kyphosis (acquired) (postural) Current visit: Yes Status: Acute Category: Medical Code(s): M40.00 - Postural kyphosis, site unspecified (3) Right lower lobe pneumonia Current visit: Yes Status: Acute Category: Medical Code(s): J18.1 - Lobar pneumonia, unspecified organism (4) Elevated hemidiaphragm Current visit: Yes Status: Acute Category: Medical Code(s): J98.6 - Disorders of diaphragm (5) Renal insufficiency Current visit: Yes Status: Acute Category: Medical Code(s): N28.9 - Disorder of kidney and ureter, unspecified (6) Bilateral lower leg cellulitis Current visit: Yes Status: Acute Category: Medical Code(s): L03.116 - Cellulitis of left lower limb; L03.115 - Cellulitis of right lower limb (7) Hypoxia Current visit: Yes Status: Acute Category: Medical Code(s): R09.02 - Hypoxemia (8) Bilateral leg edema Current visit: Yes Status: Acute Category: Medical Code(s): R60.0 - Localized edema The patient's infection will respond to the chosen ABx?: Yes Is the patient receiving the right drug, dose, and route?: Yes Could a more targeted ABx be ordered?: No
--- NOTE | 2018-10-09 17:12 | Progress Note ---
Internal Medicine - PN: Subj *Date: 10/09/18 *Time: 17:15 Interval history: Stable overnight. No hypoxic events. BP at goal. Tolerating PO intake. Went for Myoview this morning. Results pending. Patient otherwise doing well, afebrile, tolerating transition to nasal cannula oxygen, denies nausea vomiting or diarrhea, chest. Exam Vital signs and Labs for Last 24 Hours: Temp Pulse Resp BP Pulse Ox 98.0 F 98 H 18 124/59 L 97 10/09/18 16:00 10/09/18 16:00 10/09/18 16:00 10/09/18 16:00 10/09/18 16:00 Laboratory Results - last 24 hr 10/09/18 05:26: WBC 5.6, RBC 2.82 L, Hgb 9.5 L, Hct 31.0 L, MCV 109.9 H, MCH 33.8 H, MCHC 30.7 L, RDW 13.5, Plt Count 119 L D, MPV 8.5, Neut % (Auto) 64.0, Lymph % (Auto) 22.9, [place] % (Auto) 6.6, Eos % (Auto) 5.8, Baso % (Auto) 0.7, Neut # (Auto) 3.6, Lymph # (Auto) 1.3, [place] # (Auto) 0.4, Eos # (Auto) 0.3, Baso # (Auto) 0.0 10/09/18 05:26: Sodium 147 H, Potassium 3.8, Chloride 108 H, Carbon Dioxide 31, Anion Gap 11.8, BUN 18, Creatinine 1.20 D, Estimated Creat Clear 46, Estimated GFR 57 L, Est GFR ( Amer) 69 D, Glucose 106, Calcium 8.4 L I & O for Last 24 hours: Intake & Output 10/06/18 10/07/18 10/08/18 10/09/18 23:59 23:59 23:59 23:59 Intake Total 600 / 600 2523 / 2523 1320 / 1320 240 / 240 Output Total 125 / 125 1400 / 1400 1800 / 1800 500 / 500 Balance 475 / 475 1123 / 1123 -480 / -480 -260 / -260 Weight 75.892 kg 75.892 kg Narrative: Patient is awake, alert, sitting upright on the bedside commode. Lungs continue to have rhonchi and crackles in both bases. Kyphosis noted. Heart rate regular. Exam difficult because of lung sounds. Trace ankle edema, skin peeling is improving with ointment therapy. Able to move all arms and legs. Abdomen soft. Assessment and Plan (1) Frequent falls Current visit: Yes Status: Acute Category: Medical Code(s): R29.6 - Repeated falls (2) Kyphosis (acquired) (postural) Current visit: Yes Status: Acute Category: Medical Code(s): M40.00 - Postural kyphosis, site unspecified (3) Right lower lobe pneumonia Current visit: Yes Status: Acute Category: Medical Code(s): J18.1 - Lobar pneumonia, unspecified organism (4) Elevated hemidiaphragm Current visit: Yes Status: Acute Category: Medical Code(s): J98.6 - Disorders of diaphragm (5) Renal insufficiency Current visit: Yes Status: Acute Category: Medical Code(s): N28.9 - Disorder of kidney and ureter, unspecified (6) Bilateral lower leg cellulitis Current visit: Yes Status: Acute Category: Medical Code(s): L03.116 - Cellulitis of left lower limb; L03.115 - Cellulitis of right lower limb (7) Hypoxia Current visit: Yes Status: Acute Category: Medical Code(s): R09.02 - Hypoxemia (8) Bilateral leg edema Current visit: Yes Status: Acute Category: Medical Code(s): R60.0 - Localized edema - Assessment and plan all Dx Assessment and Plan for all problems:: Cardiology consulted, appreciate recommendations. Myoview performed today. Results pending. Transition to p.o. azithromycin today, transition cephalosporin tomorrow. PT/OT evaluation given significant weakness for possible skilled rehab issues, family has desire to go home though with home health PT Patient may be a candidate for home BiPAP and certainly needs a home hospital bed given positional problems. Continues to require inpatient medical management. Possible discharge tomorrow pending stable oxygen requirements, cardiology recommendations, and physical therapy [place].
[2018-10-10 06:24] LABS: Basophils % 0.7 % (0.1-2.0); Eosinophils # 0.4 K/mm3 (0.0-0.4); Eosinophils % 7.5 % (0.1-12.0); Hematocrit 32.8 % (42.0-52.0); Hemoglobin 9.9 g/dL (14.1-18.0); Lymphocytes # 1.3 K/mm3 (0.7-4.5); Lymphocytes % 23.7 % (10-50); Mean Corpuscular HGB Conc 30.3 g/dL (31.8-35.4); Mean Corpuscular Hemoglobin 33.8 pg (27.0-31.2); Mean Corpuscular Volume 111.5 fl (80-94); Mean Platelet Volume 8.1 fl (7.4-10.4); Monocytes # 0.3 K/mm3 (0.1-1.0); Monocytes % 5.8 % (1.7-9.3); Neutrophils # 3.4 K/mm3 (1.8-7.8); Neutrophils % 62.3 % (37.0-80.0); Platelet Count 115 K/mm3 (142-424); Red Blood Count 2.94 M/mm3 (4.60-6.20); Red Cell Distribution Width 13.3 % (11.5-17.5); White Blood Count 5.4 K/mm3 (4.8-10.8)
[2018-10-10 06:36] LABS: Albumin Level 2.6 gm/dL (3.4-5.0); Albumin/Globulin Ratio 0.7 (1.1-1.8); Anion Gap 8.1 mEq/L (5-15); Bilirubin,Total 0.3 mg/dL (0.2-1.0); Calcium 8.5 mg/dL (8.5-10.1); Globulin 3.9 gm/dl (1.3-3.2); Potassium 4.1 mmoL/L (3.5-5.1); Total Protein,Serum 6.5 gm/dL (6.4-8.2)
--- NOTE | 2018-10-10 09:10 | Discharge Summary ---
General - General Admission date:: 10/06/18 Discharge date: 10/10/18 HPI HPI: 87-year-old white male, patient of Dr. Carr, who went to his office today with a chief complaint of shortness of air and was found to be relatively hypoxemic by pulse oximetry criteria and was transferred over to the emergency department. In the emergency department patient was found to be dyspneic. Required oxygen, and was much more comfortable after 2 L of nasal cannula oxygen delivery. Chest x-ray revealed a right lower lobe pneumonia-although chest x-ray is somewhat compromised by patient significant postural abnormalities and patient was admitted to hospital because of hypoxia, advanced age and other comorbid factors. Hospital Course Hospital Course: Patient was admitted to hospital, placed on intravenous antibiotics for his pneumonia. He had a fairly complicated hospital course, with the development of respiratory acidosis requiring BiPAP followed by high flow nasal cannula oxygen which improved his oxygenation status at He was found to have significant lung atelectasis on CT scanning, and echocardiogram was attempted however because of his significant postural kyphosis and poor lung windows EF was unable to be calculated and a nuclear medicine test was done which revealed ejection fraction of 45% with evidence of a prior myocardial infarction with poor apical movement. Patient has no memory of having this history in the past. He was placed on higher dose Lasix and diuresed successfully. Pulmonary status improved he was able to be weaned down to nasal cannula oxygen at 3 L. He is was significantly weak because of his hypoxia, diuretics and his back posture issues. PT evaluated him and recommended evaluation for skilled care over the next 4-5 weeks until status improves. Of note patient has several new compression fractures in his spine compared to previous exams. Patient does not recall any workup as an outpatient for osteoporosis. Patient and his are agreeable to this morning with transfer to skilled care facility. Patient will need to go with his Reddy catheter, and as he gets stronger he can advance to bladder training. Catheter was placed because of immobility and need for accurate in and out monitoring. Please note patient will be on daily Lasix. NSAIDs will be held because of his history of chronic kidney disease. He will be placed on low-dose tramadol for pain control. He will finish up his antibiotics, and we will start low-dose carvedilol for CHF/blood pressure issues. Will need PT/OT at [facility], along with O2 as needed. Currently on 3L [place]. In regards to his osteoporosis we will begin alendronate therapy weekly, and when he is stronger he will need DEXA scan to monitor therapy. Please note patient will need labs done on October 12, he will need a CBC, basic metabolic panel and vitamin D level. Objective Vital signs: Temp Pulse Resp BP Pulse Ox 98.0 F 103 H 22 112/63 93 L 10/10/18 08:00 10/10/18 08:00 10/10/18 08:00 10/10/18 08:00 10/10/18 08:00 Narrative: Patient is pleasant, oriented x3. Sitting up on the side of the bed. Oropharynx clear, oxygen by nasal cannula flowing. Lungs have fairly good air movement but still with crackles in the bases but improved. Significant kyphosis noted. Heart rate regular. Edema in the feet is trace. Skin breakdown and cracking on legs is much improved with mupirocin therapy here at the hospital Abdomen is soft and nontender. Cranial nerves intact. Patient has no asymmetry of his extremity power but he is globally extremely weak and frail. Results Labs on day of discharge: Labs from last 24 hours 10/10/18 10/10/18 05:15 05:15 WBC 5.4 RBC 2.94 L Hgb 9.9 L Hct 32.8 L MCV 111.5 H MCH 33.8 H MCHC 30.3 L RDW 13.3 Plt Count 115 L MPV 8.1 Neut % (Auto) 62.3 Lymph % (Auto) 23.7 [place] % (Auto) 5.8 Eos % (Auto) 7.5 Baso % (Auto) 0.7 Neut # (Auto) 3.4 Lymph # (Auto) 1.3 [place] # (Auto) 0.3 Eos # (Auto) 0.4 Baso # (Auto) 0.0 Sodium 144 Potassium 4.1 Chloride 108 H Carbon Dioxide 32 Anion Gap 8.1 BUN 16 Creatinine 1.08 Estimated Creat Clear 51 Estimated GFR 65 Est GFR ( Amer) 78 Glucose 102 Calcium 8.5 Total Bilirubin 0.3 AST 21 ALT 19 Alkaline Phosphatase 59 Total Protein 6.5 Albumin 2.6 L Globulin 3.9 H Albumin/Globulin Ratio 0.7 L Preliminary micro results at discharge 10/06/18 10:25 Blood Culture - Preliminary Blood NO GROWTH AFTER 48 HOURS 11/10/18 10:25 Blood Culture - Preliminary Blood NO GROWTH AFTER 48 HOURS DS: Diagnosis - Discharge Diagnosis (1) Frequent falls Status: Chronic (2) Kyphosis (acquired) (postural) Status: Chronic (3) Right lower lobe pneumonia Status: Acute (4) Elevated hemidiaphragm Status: Chronic (5) Renal insufficiency Status: Chronic (6) Bilateral lower leg cellulitis Status: Chronic (7) Hypoxia Status: Chronic (8) Bilateral leg edema Status: Chronic (9) Systolic CHF, chronic Status: Chronic Problem details: Ejection fraction 45% on nuclear medicine scanning (10) Osteoporosis with fracture Status: Chronic Discharge Plan - Patient Discharge Instructions ACTIVITY: Up with assistance DIET: continue same diet Patient Instructions: DI for Cellulitis -- Adult, DI for Pneumonia -- Adult - Follow up Plan Disposition: Xfer Inpatient Rehab Fac Home Medications: Home Medications Medication Instructions Recorded Confirmed Type Naproxen 500 mg PO BID 10/06/18 10/06/18 History Neomycin/Polymyxin B Sulf/Hc 4 drops EAR-BOTH TIDP PRN 10/06/18 10/07/18 History [Zzdlthpo-Eaczxpfqs-UI Otic Susp 10mL] Potassium Chloride [Pot Chlor 10 10 meq PO DAILY 10/06/18 10/06/18 History mEq Tab] Timolol Maleate/Latanoprost/Pf 5 ml OP BID 10/06/18 10/06/18 History [Timolol 0.5%-Latanopros 0.005%] Prescriptions/Medication Reconciliation: New Tramadol HCl [Ultram 50mg tablet] 50 mg PO TIDP PRN #30 tab PRN Reason: Breakthru Moderate Pain Alendronate Sodium [Fosamax] 70 mg PO WEEKLY #5 tablet Carvedilol [Carvedilol 6.25mg Tab] 6.25 mg PO DAILY #60 tab Cefdinir [Omnicef 300mg Capsule] 300 mg PO BID #14 cap Continue Timolol Maleate/Latanoprost/Pf [Timolol 0.5%-Latanopros 0.005%] 5 ml OP BID Changed Furosemide [Furosemide 20mg Tab] 20 mg PO BIDL 30 Days tablet Discontinued Naproxen 500 mg PO BID Neomycin/Polymyxin B Sulf/Hc [Icljvxzf-Zyzyrcteq-DI Otic Susp 10mL] 4 drops EAR-BOTH TIDP PRN PRN Reason: ear wax buildup Potassium Chloride [Pot Chlor 10 mEq Tab] 10 meq PO DAILY
== END 2018-10-10 11:40 ==
LOC: 2ND 09:55 → ER 09:55 → OBSVTOIN 13:36 → 2ND 13:37
PROVIDERS: ADMIT Internal Medicine Adolescent Medicine; ATTEND Internal Medicine Adolescent Medicine

== ENCOUNTER 2018-10-13 14:22 | Inpatient (IN) ==
--- NOTE | 2018-10-13 14:37 | Emergency Department Note ---
ED Disposition Clinical Impression: Altered mental status, RLL pneumonia, Respiratory failure, Elevated troponin, Renal insufficiency, Excess ear wax Disposition: Still a Patient Condition on Discharge: Fair Instructions: DI for Altered Mental Status Referrals: Quinten Grimm MD [Primary Care Provider] - - Critical Care Critical Care Time: No Attestation: On 10/13/18, the high probability of a clinically significant, sudden or life threatening deterioration of the following system(s) required my full and direct attention, intervention and personal management. The time I documented below is in addition to time spent performing reported procedures but includes the foll owing listed in this critical care notation. Medical Decision Making - Joshua Inquiry Pt receiving controlled substance: No Joshua was queried for this patient: No Vital Signs: 10/13/18 14:23 10/13/18 14:30 10/13/18 15:29 Temperature 98.5 F Temperature Source Oral Pulse Rate [Right Brachial] 99 H 95 H 99 H Respiratory Rate 26 H Blood Pressure [Right Arm] 131/61 144/57 H 130/64 Blood Pressure Mean [Right Arm] 84 86 86 Blood Pressure Source [Right Arm] Automatic Cuff Automatic Cuff Automatic Cuff Blood Pressure Position [Right Arm] Sitting Sitting Sitting 02 Sat by Pulse Oximetry 81 L 100 100 Oxygen Delivery Method Room Air Non-Rebreather BiPAP 10/13/18 15:30 10/13/18 15:35 10/13/18 15:57 Temperature Temperature Source Pulse Rate [Right Brachial] 100 H 100 H Respiratory Rate Blood Pressure [Right Arm] 128/60 115/65 Blood Pressure Mean [Right Arm] 82 81 Blood Pressure Source [Right Arm] Automatic Cuff Automatic Cuff Blood Pressure Position [Right Arm] Sitting Sitting 02 Sat by Pulse Oximetry 97 98 98 Oxygen Delivery Method BiPAP BiPAP BiPAP 10/13/18 16:30 10/13/18 16:43 Temperature Temperature Source Pulse Rate [Right Brachial] 96 H 94 H Respiratory Rate Blood Pressure [Right Arm] 99/49 L 104/45 L Blood Pressure Mean [Right Arm] 65 64 Blood Pressure Source [Right Arm] Automatic Cuff Blood Pressure Position [Right Arm] Sitting 02 Sat by Pulse Oximetry 96 100 Oxygen Delivery Method BiPAP BiPAP - Lab Data Lab Results 10/13/18 14:25: Specimen Source Right radial, O2 % 100% nrb, ABG pH 7.18 L*, ABG pCO2 121.4 H, ABG pO2 303.4 H, ABG HCO3 44.3 H, ABG Total CO2 48.0 H, ABG O2 Saturation 99, ABG Base Excess 15.9 H, Mark Test Patient unable 10/13/18 14:26: WBC 7.5, RBC 3.39 L, Hgb 11.4 L, Hct 37.4 L, MCV 110.4 H, MCH 33.6 H, MCHC 30.4 L, RDW 13.2, Plt Count 160 D, MPV 7.8, Neut % (Auto) 70.7, Lymph % (Auto) 18.7, [place] % (Auto) 5.9, Eos % (Auto) 3.8, Baso % (Auto) 0.9, Neut # (Auto) 5.3, Lymph # (Auto) 1.4, [place] # (Auto) 0.4, Eos # (Auto) 0.3, Baso # (Auto) 0.1 10/13/18 14:26: Sodium 144, Potassium 4.7, Chloride 103, Carbon Dioxide 38 H, Anion Gap 7.7, BUN 24 H, Creatinine 1.47 H, Estimated Creat Clear 39, Estimated GFR 45 L, Est GFR ( Amer) 55 L, Glucose 104, Calcium 8.8, Total Bilirubin 0.4, AST 17, ALT 23, Alkaline Phosphatase 71, Troponin I 0.88 H, Total Protein 7.7, Albumin 2.8 L, Globulin 4.9 H, Albumin/Globulin Ratio 0.6 L 10/13/18 14:26: B-Natriuretic Peptide 170 H 10/13/18 16:15: Lactate 0.5 10/13/18 16:56: Specimen Source R/r, O2 % 40, ABG pH 7.23 L*, ABG pCO2 90.5 H, ABG pO2 83.9, ABG HCO3 36.9 H, ABG Total CO2 39.7 H, ABG O2 Saturation 95, ABG Base Excess 9.3 H, Mark Test Y, Vent Rate 24 Result diagrams: 10/13/18 14:26 10/13/18 14:26 Orders (Tests/Meds): ED MEDICATIONS Generic Name Dose Route Start Last Admin Trade Name Freq PRN Reason Stop Dose Admin Sodium Chloride 10 ml 10/13/18 15:31 10/13/18 15:34 Rad-Saline Flush 10ml Syringe IV 11/12/18 15:30 10 ml NEEDED PRN Administration Maintain IV Site Discontinued Medications Generic Name Dose Route Start Last Admin Trade Name Shannon PRN Reason Stop Dose Admin Enoxaparin Sodium 80 mg 10/13/18 15:47 10/13/18 15:58 Lovenox 80mg/0.8ml Syringe SQ 10/13/18 15:48 80 mg ONCE ONE Administration Famotidine 20 mg 10/13/18 15:47 10/13/18 15:58 Pepcid 20mg/2ml Vial IV 10/13/18 15:48 20 mg ONCE ONE Administration Sodium Chloride 500 mls @ 999 mls/hr 10/13/18 16:15 Sod Chlor 0.9% 1000ml Bag IV 10/13/18 16:45 .Q31M SHAINA Iopamidol 75 ml 10/13/18 15:31 10/13/18 15:33 [id number]; 75ml Vial IV 10/13/18 15:32 75 ml ONCE ONE Administration Protocol Naloxone HCl 0.4 mg 10/13/18 14:46 10/13/18 15:33 Narcan 0.4mg/Ml Vial IV 10/13/18 14:47 0.4 mg ONCE ONE Administration Sodium Chloride 50 ml 10/13/18 15:32 Rad-Ns 50ml Vial IV 10/13/18 15:33 ONCE ONE ORDERS Category Date Time Status Blood Culture Stat Micro 10/13/18 16:25 Received - CT Data CT Scan: Head, Chest Time Received: 15:[address] Reviewed: Yes: I have viewed the radiologist's interpretation Preliminary Findings: Abnormal Findings Narrative: MPRESSION... . Motion artifact & positioning do limit this CT head study somewhat, . However No Acute Intracranial Findings evident Prominent diffuse cerebral atrophy again noted Incidental note: prominent cerumen at external canals, right greater than left . IMPRESSION: 1. No evidence of pulmonary embolism. 2. Very Low Lung Volumes--with further decreased lung volume even since 10/07/2018. . For example Left diaphragm is up to the level of the left madi 3. . Progression of bilateral atelectasis & bilateral infiltrates since Xjo13--lcpt pronounced toward LLL.. ... Progression of bilateral pleural effusions also noted, 4.. Overall Findings are most pronounced at Left Chest/ & LLL ... LLL Collapse- progressive volume loss.. Only a small amount of air superior LLL. Progressive dense Consolidation , marked volume loss but with air bronchograms at LLL.. Likely element of associated pneumonic infiltrateLLL.. .... Also Slight progression of atelectasis & minimal patchy infiltrates L UL, along the major fissure and towards lateral left apex 5.... Right Lung.. Progression of the modest right pleural effusion. ... Progressive atelectasis & patchy infiltrate right lung base-at medial RLL & posterior sulcus,. ... Also a subtle patchy infiltrate infiltrates about the periphery the RUL towards apex... 6. Multiple vertebral body compression fractures and sternal fracture again noted - ECG Data Tracing #1 Normal sinus rhythm 99/min tall T waves no acute findings. ECG initial impression date: 10/13/18 ECG initial impression time: 15:30 Medical Decision Narrative: She ordered a labs CT PE protocol to exclude pulmonary embolism in the scenario of acute event of hypoxia and altered mental status. The told me that that he did not wake up all day today I ordered Narcan and observed for the result. I reviewed the CT pictures with Ms. Sandoval also addressed the issue of elevated troponin. 1530 while awaiting on a CT report I spoke with the and her daughter and updated her about Mr. Sandoval clinical condition. 1550 received a verbal report from Dr. Morales the patient has no PE poor inspiratory effort left lung effusion and parenchymal lung disease of the left lung. [address] Rogers who was peoplesoft functional analyst for Dr. Nickerson who after discussing his clinical scenario labs ABG CT scan requested that the patient have a repeat blood gas after 1 hour on BiPAP to decide what is the best placement for his complex presentation. IMPRESSION: 1. No evidence of pulmonary embolism. 2. Very Low Lung Volumes--with further decreased lung volume even since 10/07/2018. . For example Left diaphragm is up to the level of the left madi 3. . Progression of bilateral atelectasis & bilateral infiltrates since [id number]--bivu pronounced toward LLL.. ... Progression of bilateral pleural effusions also noted, 4.. Overall Findings are most pronounced at Left Chest/ & LLL ... LLL Collapse- progressive volume loss.. Only a small amount of air superior LLL. Progressive dense Consolidation , marked volume loss but with air bronchograms at LLL.. Likely element of associated pneumonic infiltrateLLL.. .... Also Slight progression of atelectasis & minimal patchy infiltrates L UL, along the major fissure and towards lateral left apex 5.... Right Lung.. Progression of the modest right pleural effusion. ... Progressive atelectasis & patchy infiltrate right lung base-at medial RLL & posterior sulcus,. ... Also a subtle patchy infiltrate infiltrates about the periphery the RUL towards apex... 6. Multiple vertebral body compression fractures and sternal fracture again noted 1720 I discussed with the family that if the patient transferred to tertiary center most likely need to be intubated and be in a long-term vent. Repeated blood gas has improved I discussed with Dr. Rogers who was agreeable to keep him and start him on antibiotics cefepime and Zithromax. There were stool pastors in the room who explained to the that a DNR status will be in his best interest. The is hesitant to make the decision her children are on the way and hopefully will be able to have a family meeting with Dr. Rogers in the morning to address this important. Clinically the patient is more arousable and was able to obey commands. Altered Mental Status HPI - General Chief Complaint: Altered Mental Status Stated Complaint: altered loc Time Seen by Provider: 10/13/18 14:25 Mode of Arrival: EMS Limitations: No Limitations Description of Symptoms (Recalled from ER Triage Doc. by RN): altered loc at ut. decr oxygen saturation - History of Present Illness HPI narrative: 87 years old white male with multiple medical problems recently discharged from the hospital due to right lower lobe pneumonia and complicated course that required BiPAP. Today he was alert and communicative until 20 minutes ago when the patient become unresponsive and hypoxic. Upon EMS arrival the patient was found to have a saturation of 84% that was increased to 91% using supplemental ox 2 L per nasal cannula. The patient is arousable mouth breathing in no cardiopulmonary distress but noncommunicative. He has no fever. Sinus tachycardia blood pressure is 127/69 heart rate is 88 respiratory rate is 24/minutes. Upon arrival, I asked her about the onset of symptoms and she informed me that he never woke up today and he has been sleepy all day. I discussed with her CODE STATUS and she was in favor of doing everything stating that " he is my rock". complaint: altered mental status Onset (ago): minute(s) Time: 14:00 Timing confirmed by: other (EMS service.) Severity: moderate Consistency of symptoms: constant Context: history of similar presentation - Related Data Home Medications Medication Instructions Recorded Confirmed Timolol Maleate/Latanoprost/Pf 5 ml OP BID 10/06/18 10/06/18 [Timolol 0.5%-Latanopros 0.005%] Previous Rx's Medication Instructions Recorded Alendronate Sodium [Fosamax] 70 mg PO WEEKLY #5 tablet 10/10/18 Carvedilol [Carvedilol 6.25mg Tab] 6.25 mg PO DAILY #60 tab 10/10/18 Cefdinir [Omnicef 300mg Capsule] 300 mg PO BID #14 cap 10/10/18 Furosemide [Furosemide 20mg Tab] 20 mg PO BIDL 30 Days tablet 10/10/18 Tramadol HCl [Ultram 50mg 50 mg PO TIDP PRN #30 tab 10/10/18 tablet] Allergies Allergy/AdvReac Type Severity Reaction Status Date / Time No Known Allergies Allergy Verified 10/06/18 10:16 [facility] History I have reviewed the patient's past medical history: Yes (Reviewed his skilled nursing records EMS records and DC summary from 10/10/18.) Other Medical History: Reports: Glaucoma Comment: Record deficit from primary care office: Patient endorses significant arthritis and overall fragility. Reports glaucoma, reports peripheral edema with recent Lasix treatment over the past couple of months, as well as significant arthritis, kyphosis and overall functional decline issues. Other lomeli enjoys fairly good health and has no significant heart history to his knowledge. Takes naproxen and Lasix at home. 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 Very active in [email or web address] Family Hx:: No significant family history, Non-contributory ROS Obtained: Yes All systems reviewed & no additional complaints Physical Exam - General General appearance: alert, lethargic - Head Head exam: atraumatic, normocephalic, normal inspection - Eye Eye exam: Present: normal appearance, PERRL, EOMI. Absent: scleral icterus, nystagmus - ENT ENT exam: Present: normal exam, normal oropharynx, mucous membranes moist, TM's normal bilaterally, normal external ear exam, other (Mouth breather with dental decay. ) - Neck Neck exam: Present: normal inspection, full ROM, trachea midline, other (No JVD. ). Absent: tenderness, meningismus, lymphadenopathy, thyromegaly - Chest Chest inspection: Present: normal inspection, symmetric chest wall rise. Absent: tenderness - Respiratory Respiratory exam: Present: normal lung sounds bilaterally. Absent: respiratory distress - Cardiovascular Cardiovascular exam: Present: regular rate, normal rhythm, normal heart sounds. Absent: JVD - Abdominal Exam Abdominal exam: Present: soft, normal bowel sounds. Absent: distention, tenderness, guarding, rebound, rigidity - Extremities Exam Extremities exam: Present: normal inspection, full ROM, normal capillary refill, other (Bilateral leg wrapped clean dressing, no edema. Strong bilateral dorsalis pedis pulsation. ). Absent: pedal edema, calf tenderness - Back Exam Back exam: Present: normal inspection. Absent: tenderness, CVA tenderness (R), CVA tenderness (L), paraspinal tenderness, vertebral tenderness - Neurological Exam Neurological exam: Present: alert, other (No focal deficit. ) - Psychiatric Psychiatric exam: Present: normal affect, normal mood - Skin Skin exam: Present: warm, dry, intact, normal color - Lymphatic Lymphatic Findings: no adenopathy
[2018-10-13 14:40] LABS: Basophils # 0.1 K/mm3 (0-0.2); Basophils % 0.9 % (0.1-2.0); Eosinophils # 0.3 K/mm3 (0.0-0.4); Eosinophils % 3.8 % (0.1-12.0); Hematocrit 37.4 % (42.0-52.0); Hemoglobin 11.4 g/dL (14.1-18.0); Lymphocytes # 1.4 K/mm3 (0.7-4.5); Lymphocytes % 18.7 % (10-50); Mean Corpuscular HGB Conc 30.4 g/dL (31.8-35.4); Mean Corpuscular Hemoglobin 33.6 pg (27.0-31.2); Mean Corpuscular Volume 110.4 fl (80-94); Mean Platelet Volume 7.8 fl (7.4-10.4); Monocytes # 0.4 K/mm3 (0.1-1.0); Monocytes % 5.9 % (1.7-9.3); Neutrophils # 5.3 K/mm3 (1.8-7.8); Neutrophils % 70.7 % (37.0-80.0); Platelet Count 160 K/mm3 (142-424); Red Blood Count 3.39 M/mm3 (4.60-6.20); Red Cell Distribution Width 13.2 % (11.5-17.5); White Blood Count 7.5 K/mm3 (4.8-10.8)
[2018-10-13 14:47] LABS: ABG Base Excess 15.9 mmol/L (-2.4-2.3); ABG HCO3 44.3 mmhg (22.0-26.0); ABG Oxygen Saturation 99 % (90-100); ABG PO2 303.4 mmhg (80-100)
[2018-10-13 14:50] LABS: Allen's Test Patient Unable
[2018-10-13 14:50] LABS: Albumin Level 2.8 gm/dL (3.4-5.0); Albumin/Globulin Ratio 0.6 (1.1-1.8); Anion Gap 7.7 mEq/L (5-15); Bilirubin,Total 0.4 mg/dL (0.2-1.0); Calcium 8.8 mg/dL (8.5-10.1); Globulin 4.9 gm/dl (1.3-3.2); Potassium 4.7 mmoL/L (3.5-5.1); Total Protein,Serum 7.7 gm/dL (6.4-8.2)
[2018-10-13 14:51] LABS: ABG PCO2 121.4 mmhg (35.0-45.0); ABG PH 7.18 mmol/L (7.35-7.45)
[2018-10-13 16:58] LABS: ABG Base Excess 9.3 mmol/L (-2.4-2.3); ABG HCO3 36.9 mmhg (22.0-26.0); ABG Oxygen Saturation 95 % (90-100); ABG PH 7.23 mmol/L (7.35-7.45); ABG PO2 83.9 mmhg (80-100); ABG TCO2 39.7 mmhg (23-27); Allen's Test Y; Oxygen 40 %
[2018-10-13 16:59] LABS: ABG PCO2 90.5 mmhg (35.0-45.0)
[2018-10-14 05:55] LABS: ABG Base Excess 6.7 mmol/L (-2.4-2.3); ABG HCO3 32.5 mmhg (22.0-26.0); ABG Oxygen Saturation 97 % (90-100); ABG PH 7.34 mmol/L (7.35-7.45); ABG PO2 99.2 mmhg (80-100); ABG TCO2 34.4 mmhg (23-27)
[2018-10-14 05:57] LABS: Allen's Test Acceptable; Oxygen 35 %
[2018-10-14 05:59] LABS: ABG PCO2 61.8 mmhg (35.0-45.0)
[2018-10-14 06:42] LABS: Basophils % 0.7 % (0.1-2.0); Eosinophils # 0.1 K/mm3 (0.0-0.4); Eosinophils % 1.7 % (0.1-12.0); Hematocrit 31.5 % (42.0-52.0); Lymphocytes # 1.3 K/mm3 (0.7-4.5); Lymphocytes % 19.8 % (10-50); Mean Corpuscular HGB Conc 30.4 g/dL (31.8-35.4); Mean Corpuscular Hemoglobin 33.2 pg (27.0-31.2); Mean Corpuscular Volume 109.3 fl (80-94); Mean Platelet Volume 8.7 fl (7.4-10.4); Monocytes # 0.4 K/mm3 (0.1-1.0); Monocytes % 6.2 % (1.7-9.3); Neutrophils # 4.5 K/mm3 (1.8-7.8); Neutrophils % 71.6 % (37.0-80.0); Platelet Count 138 K/mm3 (142-424); Red Blood Count 2.88 M/mm3 (4.60-6.20); Red Cell Distribution Width 13.1 % (11.5-17.5); White Blood Count 6.3 K/mm3 (4.8-10.8)
[2018-10-14 06:45] LABS: Hemoglobin 9.5 g/dL (14.1-18.0)
[2018-10-14 07:06] LABS: Anion Gap 13.1 mEq/L (5-15); Calcium 8.1 mg/dL (8.5-10.1); Potassium 4.1 mmoL/L (3.5-5.1)
--- NOTE | 2018-10-14 08:10 | History & Physical Report ---
*Admission Date: 10/13/18 *Chief complaint: Altered level of consciousness *History of present illness: 87-year-old male with recent hospitalization at [facility] for pneumonia presented to the emergency department from [facility] where he was residing with a depressed level of consciousness. Patient himself does not recall any of the events that led to his hospitalization. His states that yesterday morning he was confused and did not seem to be himself. Ultimately this was brought to the attention of shelter staff and EMS was called to transport patient to the emergency department. Patient was felt to be in some acute on chronic respiratory failure in route and was started on oxygen. By the time he arrived at the emergency department patient was somewhat obtunded. Blood gas revealed acute respiratory acidosis with acute on chronic respiratory failure. Patient was started on BiPAP which brought his PCO2 from 120 down to 90 and patient's level of consciousness began to improve. A repeat CT scan of the chest performed in the emergency department showed previously identified elevated left hemidiaphragm it was somewhat worse along with collapse of the left lower lobe. Right middle lobe pneumonia for which the patient was being treated had improved compared to previous scan. Patient was admitted on BiPAP and his remained on BiPAP since admission. Overnight he became more awake and alert and this morning is alert and oriented. He can carry on conversation through the BiPAP. He admits that he is hungry. He does not recall ever experiencing any chest pain. Troponins have been noted to be elevated on presentation. During his last hospitalization he had an echocardiogram with ejection fraction of 45% started on low-dose Lasix twice daily. He was placed on IV fluids overnight but I have already discontinued these this morning. [facility] History Medical History: Reports:: Congestive Heart Failure Denies:: Cancer, Diabetes Mellitus Type 1, Diabetes Mellitus Type 2, MRSA Other Medical History: Reports: Glaucoma Comment: Pneumonia Other Surgeries: Yes: Hernia Repair Amputation: No Fractures: No - *Social History Educational Level: Attended College Smoking Status: Former smoker Tobacco Type: cigarettes Alcohol Intake: never Occupational Status: retired Housing: shelter Household Members: spouse - Psychiatric History Expresses thoughts of harming self/others: None Suicide Plan Description: No Plan *Family Hx:: No significant family history, Non-contributory Review of Systems - Review of Systems Review of systems:: pertinent systems reviewed and negative unless documented below - Constitutional Denies body ache(s), Denies chills, Denies fever(s) - *Cardiovascular Denies chest pain, Denies chest pain at rest, Denies chest pain with activity - *Respiratory Reports chest congestion, Reports cough, Reports shortness of breath, Denies coughing up blood - *Gastrointestinal Denies abdominal pain, Denies change in bowel habits - *Genitourinary Denies difficulty urinating - *Musculoskeletal Reports abnormal walking, Reports joint pain, Reports back pain (Kyphosis of spine) Meds Home Medications Medication Instructions Recorded Confirmed Type Timolol Maleate/Latanoprost/Pf 5 ml OP BID 10/06/18 10/14/18 History [Timolol 0.5%-Latanopros 0.005%] Acetaminophen [Tylenol Extra 1,000 mg PO Q6H PRN 10/14/18 10/14/18 History Strength] Allergies Allergy/AdvReac Type Severity Reaction Status Date / Time No Known Allergies Allergy Verified 10/13/18 17:54 Exam Vital signs and Labs for Last 24 Hours: Temp Pulse Resp BP Pulse Ox 98.9 F 96 H 20 121/60 100 10/14/18 02:30 10/14/18 06:00 10/14/18 06:00 10/14/18 06:00 10/14/18 06:00 Laboratory Results - last 24 hr 10/13/18 14:25: Specimen Source Right radial, O2 % 100% nrb, ABG pH 7.18 L*, ABG pCO2 121.4 H, ABG pO2 303.4 H, ABG HCO3 44.3 H, ABG Total CO2 48.0 H, ABG O2 Saturation 99, ABG Base Excess 15.9 H, Mark Test Patient unable 10/13/18 14:26: WBC 7.5, RBC 3.39 L, Hgb 11.4 L, Hct 37.4 L, MCV 110.4 H, MCH 33.6 H, MCHC 30.4 L, RDW 13.2, Plt Count 160 D, MPV 7.8, Neut % (Auto) 70.7, Lymph % (Auto) 18.7, [place] % (Auto) 5.9, Eos % (Auto) 3.8, Baso % (Auto) 0.9, Neut # (Auto) 5.3, Lymph # (Auto) 1.4, [place] # (Auto) 0.4, Eos # (Auto) 0.3, Baso # (Auto) 0.1 10/13/18 14:26: Sodium 144, Potassium 4.7, Chloride 103, Carbon Dioxide 38 H, Anion Gap 7.7, BUN 24 H, Creatinine 1.47 H, Estimated Creat Clear 39, Estimated GFR 45 L, Est GFR ( Amer) 55 L, Glucose 104, Calcium 8.8, Total Bilirubin 0.4, AST 17, ALT 23, Alkaline Phosphatase 71, Troponin I 0.88 H, Total Protein 7.7, Albumin 2.8 L, Globulin 4.9 H, Albumin/Globulin Ratio 0.6 L 10/13/18 14:26: B-Natriuretic Peptide 170 H 10/13/18 16:15: Lactate 0.5 10/13/18 16:56: Specimen Source R/r, O2 % 40, ABG pH 7.23 L*, ABG pCO2 90.5 H, ABG pO2 83.9, ABG HCO3 36.9 H, ABG Total CO2 39.7 H, ABG O2 Saturation 95, ABG Base Excess 9.3 H, Mark Test Y, Vent Rate 24 10/13/18 21:00: Troponin I 0.81 H 10/14/18 06:00: Specimen Source Rt radial, O2 % 35, ABG pH 7.34 L, ABG pCO2 61.8 H, ABG pO2 99.2, ABG HCO3 32.5 H, ABG Total CO2 34.4 H, ABG O2 Saturation 97, ABG Base Excess 6.7 H, Mark Test Acceptable, Vent Rate 20, Tidal Volume Bipap 20/4 10/14/18 06:07: WBC 6.3, RBC 2.88 L, Hgb 9.5 L D, Hct 31.5 L, MCV 109.3 H, MCH 33.2 H, MCHC 30.4 L, RDW 13.1, Plt Count 138 L, MPV 8.7, Neut % (Auto) 71.6, Lymph % (Auto) 19.8, [place] % (Auto) 6.2, Eos % (Auto) 1.7, Baso % (Auto) 0.7, Neut # (Auto) 4.5, Lymph # (Auto) 1.3, [place] # (Auto) 0.4, Eos # (Auto) 0.1, Baso # (Auto) 0.0 10/14/18 06:07: Sodium 149 H, Potassium 4.1, Chloride 108 H, Carbon Dioxide 32, Anion Gap 13.1, BUN 29 H, Creatinine 1.26, Estimated Creat Clear 42, Estimated GFR 54 L, Est GFR ( Amer) 65, Glucose 92, Calcium 8.1 L I & O for Last 24 hours: Intake & Output 10/11/18 10/12/18 10/13/18 10/14/18 11:59 11:59 11:59 11:59 Intake Total 1807 / 1807 Output Total 375 / 375 Balance 1432 / 1432 Weight 161 lb 4 oz Narrative: Patient is awake and alert this morning. Pupils are reactive to light. Oral thinks is dry. Neck is without lymphadenopathy, carotid bruits, jugular venous distention. Lungs have fair aeration in the right lung and fair aeration in the left lung superiorly. Breath sounds in the left base are diminished. Heart has a regular rate and rhythm. Abdomen is soft. Extremities are warm to the touch with some trace edema. There are no rashes of the skin. 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 Category: Medical Code(s): J98.6 - Disorders of diaphragm (5) Hypoxia Current visit: No Status: Chronic Category: Medical Code(s): R09.02 - Hypoxemia (6) Kyphosis (acquired) (postural) Current visit: No Status: Chronic Category: Medical Code(s): M40.00 - Postural kyphosis, site unspecified (7) Osteoporosis with fracture Current visit: No Status: Chronic Category: Medical Code(s): M80.80XA - Other osteoporosis with current pathological fracture, unspecified site, initial encounter for fracture (8) Systolic CHF, chronic Problem details: Ejection fraction 45% on nuclear medicine scanning Current visit: No Status: Chronic Category: Medical Code(s): I50.22 - Chronic systolic (congestive) heart failure (9) Left lower lobe pneumonia Current visit: Yes Status: Acute Category: Medical Code(s): J18.1 - Lobar pneumonia, unspecified organism - Assessment and plan all Dx Assessment and Plan for all problems:: 1. Continue cefepime and azithromycin to cover patient's pneumonia 2. Wean BiPAP this a.m. Use BiPAP as needed during hospitalization. Patient's son is a respiratory therapist in [place] and is here at bedside with the patient. He is already asking questions about the possibility of the patient being discharged with BiPAP or a trilogy ventilatory assist device. Patient's son is encouraging the patient to use BiPAP at night. An ABG will be repeated in the morning. 3. DC IV fluids and give home medicine of Lasix 20 twice daily 4. Give Lovenox 1 mg/kg subcu twice daily for elevated troponin
--- NOTE | 2018-10-14 11:35 | Pharmacy Consult Notes ---
[facility] Pharmacy VTE Monitoring - Patient Demographics Admission date: 10/13/18 Report Date: 10/14/18 Time: 11:35 Allergies/Adverse Reactions: Patient Allergies No Known Allergies Allergy (Verified 10/13/18 17:54) Height: 1.7 m Weight: 73.142 kg Patient Problems: Current Active Problems Right lower lobe pneumonia (Acute) Renal insufficiency (Chronic) Altered mental status (Acute) Respiratory failure (Acute) Elevated troponin (Acute) Excess ear wax (Acute) Acute and chronic respiratory failure ([id number]) (Acute) Left lower lobe pneumonia (Acute) - VTE Risk Labs: VTE Related Lab Results Hgb 9.5 g/dL (14.1-18.0) L D 10/14/18 06:07 Hct 31.5 % (42.0-52.0) L 10/14/18 06:07 Plt Count 138 K/mm3 (142-424) L 10/14/18 06:07 BUN 29 mg/dL (7-18) H 10/14/18 06:07 Creatinine 1.26 mg/dL (0.70-1.30) 10/14/18 06:07 Estimated Creat Clear 42 mL/min (50-200) 10/14/18 06:07 VTE Score: 5 VTE Risk Level: Low Risk - Prophylaxis VTE Prophylaxis Ordered?: Yes Types of VTE Prophylaxis: Pharmacological Pharmacologic Type: Enoxaparin - VTE Diagnosis Confirmed Treatment or plan recommended: Continue Current Treatment
[2018-10-15 05:37] LABS: Anion Gap 7.4 mEq/L (5-15); Calcium 8.3 mg/dL (8.5-10.1); Potassium 3.4 mmoL/L (3.5-5.1)
[2018-10-15 06:05] LABS: ABG HCO3 34.2 mmhg (22.0-26.0); ABG Oxygen Saturation 87 % (90-100); ABG PH 7.43 mmol/L (7.35-7.45); ABG TCO2 35.9 mmhg (23-27)
[2018-10-15 06:07] LABS: Allen's Test Acceptable; Oxygen 28 %
[2018-10-15 06:10] LABS: ABG PCO2 52.3 mmhg (35.0-45.0); ABG PO2 49.9 mmhg (80-100)
--- NOTE | 2018-10-15 08:46 | Progress Note ---
Internal Medicine - PN: Subj *Date: 10/15/18 *Time: 08:43 Interval history: Patient overnight did well with BiPAP, this morning he is awake, alert. Had a long discussion with his , son and his daughter who is reached via cell phone regarding his ongoing issues and need for ongoing therapy. They do not wish to be placed back at the [facility]. It was "too depressing." They do acknowledge that he will need some ongoing therapy in addition to nightly respiratory support device. Exam Vital signs and Labs for Last 24 Hours: Temp Pulse Resp BP Pulse Ox 98.1 F 95 H 22 122/51 L 97 10/15/18 08:00 10/15/18 08:00 10/15/18 08:00 10/15/18 08:00 10/15/18 08:00 Laboratory Results - last 24 hr 10/15/18 05:00: Sodium 143, Potassium 3.4 L, Chloride 105, Carbon Dioxide 34 H, Anion Gap 7.4, BUN 25 H, Creatinine 1.21, Estimated Creat Clear 44, Estimated GFR 57 L, Est GFR ( Amer) 68, Glucose 119 H D, Calcium 8.3 L, Troponin I 0.29 H 10/15/18 06:00: Specimen Source Rt radial, O2 % 28, ABG pH 7.43, ABG pCO2 52.3 H , ABG pO2 49.9 L, ABG HCO3 34.2 H, ABG Total CO2 35.9 H, ABG O2 Saturation 87 L* , ABG Base Excess 10.0 H, Mark Test Acceptable I & O for Last 24 hours: Intake & Output 10/12/18 10/13/18 10/14/18 10/15/18 11:59 11:59 11:59 11:59 Intake Total 2167 / 2167 1267 / 1267 Output Total 375 / 375 1700 / 1700 Balance 1792 / 1792 -433 / -433 Weight 161 lb 4 oz 162 lb Microbiology Reports for the Last 24 Hours: Microbiology 10/14/18 09:20 Sputum - Expectorated Sputum Gram Stain - Final 10/14/18 09:20 Sputum - Expectorated Sputum Sputum Culture - Final Narrative: Patient is weak but alert. Responds to commands. Oropharynx clear. Rhonchi in both lower lung nobles. Abdomen soft. Heart rate regular. No edema or clubbing. Reddy catheter draining clear yellow urine. 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 Category: Medical Code(s): J98.6 - D isorders of diaphragm (5) Hypoxia Current visit: No Status: Chronic Category: Medical Code(s): R09.02 - Hypoxemia (6) Kyphosis (acquired) (postural) Current visit: No Status: Chronic Category: Medical Code(s): M40.00 - Postural kyphosis, site unspecified (7) Osteoporosis with fracture Current visit: No Status: Chronic Category: Medical Code(s): M80.80XA - Other osteoporosis with current pathological fracture, unspecified site, initial encounter for fracture (8) Systolic CHF, chronic Problem details: Ejection fraction 45% on nuclear medicine scanning Current visit: No Status: Chronic Category: Medical Code(s): I50.22 - Chronic systolic (congestive) heart failure (9) Left lower lobe pneumonia Current visit: Yes Status: Acute Category: Medical Code(s): J18.1 - Lobar pneumonia, unspecified organism - Assessment and plan all Dx Assessment and Plan for all problems:: Appreciate Dr. Rogers H&P and plan. I agree with this plan. Respiratory therapy to evaluate trilogy device for transition to snf. Care management to find a more appropriate/acceptable placement for the patient.
--- NOTE | 2018-10-16 08:50 | Progress Note ---
Internal Medicine - PN: Subj *Date: 10/16/18 *Time: 08:52 Interval history: Patient did well overnight. No acute respiratory distress. Wore BiPAP with benefit. Alert and oriented on exam this morning. Tolerating regular diet. Remains afebrile, dynamically stable. Continues to catheter in, though not incontinent prior to admission. Denies chest pain, productive cough, emesis or diarrhea Exam Vital signs and Labs for Last 24 Hours: Temp Pulse Resp BP Pulse Ox 97.6 F 84 20 155/66 H 93 L 10/16/18 04:00 10/16/18 04:00 10/16/18 04:00 10/16/18 04:00 10/16/18 08:00 I & O for Last 24 hours: Intake & Output 10/13/18 10/14/18 10/15/18 10/16/18 23:59 23:59 23:59 23:59 Intake Total 500 / 500 2694 / 2694 820 / 820 Output Total 375 / 375 700 / 700 1999 / 1999 500 / 500 Balance 125 / 125 1993 / 1993 -1180 / -1180 -500 / -500 Weight 71.866 kg 73.142 kg 73.482 kg 73.9 kg Microbiology Reports for the Last 24 Hours: Microbiology 10/13/18 16:15 Blood Blood Culture - Preliminary NO GROWTH AFTER 48 HOURS 10/13/18 16:25 Blood Blood Culture - Preliminary NO GROWTH AFTER 48 HOURS - *Routine HEENT Exam Head: Present: normocephalic, atraumatic Eye: Present: EOMI, PERRL ENT: Present: mucous membranes moist - *Routine Neck Exam Present: supple. Absent: JVD - *Routine Respiratory Exam Present: diminished air movement. Absent: wheezes, crackles - *Routine Cardiovascular Exam Present: RRR, Normal S1, Normal S2. Absent: murmur - *Routine Abdominal Exam Present: soft, normoactive bowel sounds - *Routine Rectal Exam Patient deferred: visual exam - *Routine Exam Patient deferred: penile exam - *Routine Extremities Exam Absent: cyanosis, clubbing, edema - *Routine Skin Exam Present: intact. 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: Chronic Category: Medical Code(s): J98.6 - Disorders of diaphragm (5) Hypoxia Current visit: No Status: Chronic Category: Medical Code(s): R09.02 - Hypoxemia (6) Kyphosis (acquired) (postural) Current visit: No Status: Chronic Category: Medical Code(s): M40.00 - Postural kyphosis, site unspecified (7) Osteoporosis with fracture Current visit: No Status: Chronic Category: Medical Code(s): M80.80XA - Other osteoporosis with current pathological fracture, unspecified site, initial encounter for fracture (8) Systolic CHF, chronic Problem details: Ejection fraction 45% on nuclear medicine scanning Current visit: No Status: Chronic Category: Medical Code(s): I50.22 - Chronic systolic (congestive) heart failure (9) Left lower lobe pneumonia Current visit: Yes Status: Acute Category: Medical Code(s): J18.1 - Lobar pneumonia, unspecified organism - Assessment and plan all Dx Assessment and Plan for all problems:: Transition IV and Rx to p.o. today with continuation of azithromycin, transition to Cefdinir -Set up BiPAP for home use -Discontinue Reddy -Goal of voiding on bedside commode today -Plan for discharge tomorrow to [facility]
--- NOTE | 2018-10-17 08:13 | Discharge Summary ---
General - General Admission date:: 10/13/18 Discharge date: 10/17/18 HPI HPI: 87-year-old male with recent hospitalization at [facility] for pneumonia presented to the emergency department from [facility] where he was residing with a depressed level of consciousness. Patient himself does not recall any of the events that led to his hospitalization. His states that yesterday morning he was confused and did not seem to be himself. Ultimately this was brought to the attention of [facility] staff and EMS was called to transport patient to the emergency department. Patient was felt to be in some acute on chronic respiratory failure in route and was started on oxygen. By the time he arrived at the emergency department patient was somewhat obtunded. Blood gas revealed acute respiratory acidosis with acute on chronic respiratory failure. Patient was started on BiPAP which brought his PCO2 from 120 down to 90 and patient's level of consciousness began to improve. A repeat CT scan of the chest performed in the emergency department showed previously identified elevated left hemidiaphragm it was somewhat worse along with collapse of the left lower lobe. Right middle lobe pneumonia for which the patient was being treated had improved compared to previous scan. Patient was admitted on BiPAP and his remained on BiPAP since admission. Overnight he became more awake and alert and this morning is alert and oriented. He can carry on conversation through the BiPAP. He admits that he is hungry. He does not recall ever experiencing any chest pain. Troponins have been noted to be elevated on presentation. During his last hospitalization he had an echocardiogram with ejection fraction of 45% started on low-dose Lasix twice daily. He was placed on IV fluids overnight but I have already discontinued these this morning. Hospital Course Hospital Course: Patient admitted for acute hypercarbic respiratory failure. Responded well to BiPAP and initiation of antibiotics. Significant clinical improvement over course of hospitalization. Assessed by physical therapy for placement needs. Position oral antibiotics for continued treatment plan to complete 10-day course of azithromycin and cefepime for presumed HCAP Finishing on 10/23/18. Patient hemodynamically stable, mentating at baseline. Still weak but needs further skilled rehab. Set up with home BiPAP. At bedside on day of discharge. We will go with him to the [facility] for use nightly. Objective Vital signs: Temp Pulse Resp BP Pulse Ox 97.9 F 96 H 20 127/62 90 L 10/17/18 07:50 10/17/18 07:50 10/17/18 07:50 10/17/18 07:50 10/17/18 07:50 Narrative: - *Routine HEENT Exam Head: Present: normocephalic, atraumatic Eye: Present: EOMI, PERRL ENT: Present: mucous membranes moist - *Routine Neck Exam Present: supple. Absent: JVD - *Routine Respiratory Exam Present: diminished air movement in bases. Absent: wheezes, crackles - *Routine Cardiovascular Exam Present: RRR, Normal S1, Normal S2. Absent: murmur - *Routine Abdominal Exam Present: soft, normoactive bowel sounds - *Routine Rectal Exam Patient deferred: visual exam - *Routine Exam Patient deferred: penile exam - *Routine Extremities Exam Absent: cyanosis, clubbing, edema - *Routine Skin Exam Present: intact. Absent: cyanosis, erythema - *Routine Neurological Exam Present: alert, oriented X3 Results Labs on day of discharge: Preliminary micro results at discharge 10/13/18 16:15 Blood Culture - Preliminary Blood NO GROWTH AFTER 48 HOURS 10/13/18 16:25 Blood Culture - Preliminary Blood NO GROWTH AFTER 48 HOURS DS: Diagnosis - Discharge Diagnosis (1) Acute and chronic respiratory failure ([id number]) Status: Acute (2) Elevated troponin Status: Acute (3) Right lower lobe pneumonia Status: Acute (4) Elevated hemidiaphragm Status: Chronic (5) Hypoxia Status: Chronic (6) Kyphosis (acquired) (postural) Status: Chronic (7) Osteoporosis with fracture Status: Chronic (8) Systolic CHF, chronic Status: Chronic Problem details: Ejection fraction 45% on nuclear medicine sca nning (9) Left lower lobe pneumonia Status: Acute Discharge Plan - Patient Discharge Instructions ACTIVITY: Ambulate as tolerated DIET: continue same diet Patient Instructions: How to Use an Incentive Spirometer, Pneumonia-Adult, Respiratory Failure - Follow up Plan Follow up with: Quinten Grimm MD [Primary Care Provider] - Disposition: er [facility] Home Medications: Home Medications Medication Instructions Recorded Confirmed Type Timolol Maleate/Latanoprost/Pf 5 ml OP BID 10/06/18 10/14/18 History [Timolol 0.5%-Latanopros 0.005%] Acetaminophen [Tylenol Extra 1,000 mg PO Q6H PRN 10/14/18 10/14/18 History Strength] Prescriptions/Medication Reconciliation: New Carvedilol [Coreg 3.125mg Tablet] 3.125 mg PO BID tablet Cefdinir [Omnicef 300mg Capsule] 300 mg PO BID capsule Famotidine/Pf [Pepcid 20mg/2mL Vial] 20 mg IV BID vial Azithromycin [Zithromax 250mg tab] 250 mg PO DAILY #0 tablet Continue Tramadol HCl [Ultram 50mg tablet] 50 mg PO TIDP PRN #30 tab PRN Reason: Breakthru Moderate Pain Alendronate Sodium [Fosamax] 70 mg PO WEEKLY #5 tablet Furosemide [Furosemide 20mg Tab] 20 mg PO BIDL 30 Days tablet Timolol Maleate/Latanoprost/Pf [Timolol 0.5%-Latanopros 0.005%] 5 ml OP BID Acetaminophen [Tylenol Extra Strength] 1,000 mg PO Q6H PRN PRN Reason: Fever > 100.4 Discontinued Cefdinir [Omnicef 300mg Capsule] 300 mg PO BID #14 cap
== END 2018-10-17 16:15 ==
LOC: ER 14:22 → 2ND 17:29
PROVIDERS: ADMIT Family Medicine; ATTEND Internal Medicine Adolescent Medicine